=== PATIENT | female | born 2000 | race Caucasian/White ===

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

== ENCOUNTER 2021-02-25 15:03 | Emergency (ER) | payer BC, SELFPAY ==
[2021-02-25 15:03] VITALS: BP 123/99; PULSE 145; RESP 18; TEMP 36.6; O2SAT 94; BMI 21.2
--- NOTE | 2021-02-25 15:46 | EX.ED.DYSGE1 ---
HPI History of Present Illness Chief Complaint: Abd Pain Detail of Chief Complaint: Abdominal pain, back pain, dysuria Informant: patient Onset/Context/Timing Current Severity: 08/17 Narrative Narrative: Patient presents to the emergency department with complaint of 2-day history of urinary frequency and dysuria. Patient states that she started having back pain yesterday as well as nausea and some dry heaves. Patient has history of polycystic kidney disease and has a bladder pacemaker. Patient complains of pain mostly to her left flank. She denies any diarrhea. Patient has had subjective fever at home. Prior similar symptoms: Yes PFSH PFSH Medical History Anemia Anxiety Blackout Bladder disease Depression Easy bruising Excessive bleeding History of COVID-19 Injury of head and neck Marijuana use Nocturia Polycystic kidney disease Smoker Tourettes syndrome Urge incontinence Urinary tract infection Wears glasses Home Medications oxycodone-acetaminophen [Percocet] 1 tab PO Q8H PRN 5 Days #15 tab 11/12/20 [Rx Last Taken Unknown] oxycodone-acetaminophen 1 tab PO Q6H PRN PRN 3 Days #6 tablet 02/25/21 [Rx Last Taken Unknown] sulfamethoxazole-trimethoprim 1 tab PO BID #6 tablet 02/25/21 [Rx Last Taken Unknown] Allergy/AdvReac Type Severity Reaction Status Date / Time vancomycin AdvReac Itching Verified 11/26/20 06:41 Family History Mother CVA (cerebral vascular accident) Surgical History Hemangioma Hx of cystoscopy Social History household members: family Smoking Status: Current every day smoker tobacco type: smokeless tobacco alcohol intake: never substance use type: does not use ROS ROS ED Constitutional Constitutional ED: Reports systems reviewed and no addt'l complaints, except as documented; Denies body ache(s), change in weight or chills Eyes Eyes: Denies acute decrease in peripheral vision, change in vision, double vision or loss of vision ENT ENT ED: Reports none; Denies ear pain, lip swelling, loss taste/smell, neck pain, otalgia or sore throat Cardiovascular Cardiovascular: Reports none; Denies abdominal pain, chest pain with activity, leg edema, lightheadedness, palpitations, rapid heart rate or syncope Respiratory/Chest Respiratory/Chest: Reports none; Denies change in mental status, dry cough, dyspnea, hemoptysis, shortness of breath at rest or shortness of breath with exertion Gastrointestinal Gastrointestinal: Reports none, abdominal pain and nausea; Denies change in stool character, diarrhea, hematemesis, hematochezia, melena, rectal bleeding or vomiting Genitourinary Genitourinary ED: Reports none, dysuria and urinary frequency; Denies abdominal discomfort, anuria, genital pain or polyuria Musculoskeletal Musculoskeletal: Reports none and back pain; Denies arthralgias, difficulty walking, extremity pain, muscle weakness or myalgias Integumentary Reports none; Denies abscess or rash Neurologic Neurologic: Reports none; Denies abnormal gait, confusion, focal weakness, frequent falls, headache(s), loss of vision, numbness, paresthesias, radicular pain, vertigo or weakness Psychiatric Psychiatric: Reports systems reviewed and no addt'l complaints, except as documented and none; Denies behavioral changes, confusion, difficulty concentrating, hallucinations, suicidal ideation, tactile hallucinations or visual hallucinations Endocrine Endocrinology: Denies none, cold intolerance, excessive sweating, fatigue or heat intolerance Hematologic/Lymphatic Hematologic/Lymphatic: Reports none; Denies anemia, easy bleeding or easy bruising Allergic/Immunologic Allergic/Immunologic ED: Denies as per HPI, none, lip swelling, mouth swelling, throat swelling, tongue swelling or hives EXAM Physical Exam Const Vital Signs: 02/25/21 15:03 Temperature 97.8 F Temperature Source Temporal Pulse Rate 145 H Respiratory Rate 18 Blood Pressure 123/99 H Blood Pressure Mean 107 Pulse Ox 94 Oxygen Delivery Method Room Air Positive well nourished and well developed General Appearance ED: well developed and NAD HEENT Reports TM's clear and moist mucous membranes normocephalic and atraumatic; Negative for trauma or tenderness Tympanic Membrane ED: Yes TM's clear Eyes PERRL and EOMs intact bilaterally General Eye ED: Negative for pale conjunctiva or scleral icterus Neck no lymphadenopathy, supple and no JVD General: Negative for tenderness Chest Wall inspection of chest normal and palpation of chest normal Chest: Negative for tenderness Resp normal respiratory effort and clear to auscultation bilaterally Effort and Inspection: Negative for respiratory distress or pain with movement Auscultation: Negative for rhonchi, wheezes or diminished lung sounds Cardio regular rate, regular rhythm, S1 normal heart sound, S2 normal heart sound and no murmurs Peripheral Pulses: pulses 2+ throughout GI normal to inspection, nondistended, normoactive bowel sounds, soft to palpation, non-distended and no masses GI Narrative: Patient with mild suprapubic tenderness on palpation. There is no rebound, rigidity, or perineal signs. Palpation: tender Back/Spine no thoracic nor lumbar tenderness General Back: CVA tenderness left Extremity normal to inspection General Extremety ED: Negative for edema General Extremity: Negative for edema Neuro oriented x3, CN's II-XII intact bilaterally, no sensory deficits noted and gait normal Sensorium / Orientation: awake, alert, oriented to person, oriented to place and oriented to time Motor Exam: strength 5/5 throughout and strength abnormal Psych mental status grossly normal Skin no rashes or lesions noted and no wounds MDM MDM MDM Narrative Medical decision making narrative: IV line established on arrival. Patient was given Toradol as well as Zofran. Patient states the Toradol really did not help her very much. Urine had blood in it but patient is around her menstrual period. Patient had a negative CT scan of the abdomen pelvis to rule out kidney stone. At this point etiology of her pain is unclear. I will cover her with Bactrim for 3 days as patient is adamant that after menstrual period she has often had urinary tract infections that felt similar. I did send off urine culture. Patient also will be given a prescription for Zofran and a few Percocet for pain. Lab Data Attestation: I reviewed the patient's lab results. Labs: Laboratory Results - last 24 hr 02/25/21 02/25/21 02/25/21 16:03 16:03 16:03 WBC 5.2 RBC 4.92 Hgb 12.3 Hct 38.3 MCV 77.8 L MCH 25.0 L MCHC 32.1 RDW Std Deviation 40.6 RDW Coeff of Tiffany 14.6 Plt Count 418 MPV 9.7 Immature Gran % (Auto) 0.200 Neut % (Auto) 51.5 Lymph % (Auto) 35.3 [place] % (Auto) 10.7 H Eos % (Auto) 1.9 Baso % (Auto) 0.4 Absolute Neuts (auto) 2.7 Absolute Lymphs (auto) 1.82 Nucleated RBC % 0 Sodium 139 Potassium 4.0 Chloride 109 H Carbon Dioxide 23.0 Anion Gap 7 BUN 10 Creatinine 0.70 Estim Creat Clear Calc 106.93 Est GFR (MDRD) Af Amer 138 Est GFR (MDRD) Non-Af 114 BUN/Creatinine Ratio 14.3 Glucose 85 Lactic Acid 0.9 Calcium 9.0 Total Bilirubin 0.30 AST 17 ALT 18 Alkaline Phosphatase 47 Total Protein 7.6 Albumin 3.3 Globulin 4.3 H Albumin/Globulin Ratio 0.8 L Serum , Qual Urine Color Urine Clarity Urine pH Ur Specific [place] Urine Protein Urine Glucose (UA) Urine Ketones Urine Occult Blood Urine Nitrite Urine Bilirubin Urine Urobilinogen Ur Leukocyte Esterase Urine RBC Urine WBC Ur Squamous Epith Cells Urine Bacteria Urine Mucus 02/25/21 02/25/21 16:03 16:30 WBC RBC Hgb Hct MCV MCH MCHC RDW Std Deviation RDW Coeff of [place] Plt Count MPV Immature Gran % (Auto) Neut % (Auto) Lymph % (Auto) [place] % (Auto) Eos % (Auto) Baso % (Auto) Absolute Neuts (auto) Absolute Lymphs (auto) Nucleated RBC % Sodium Potassium Chloride Carbon Dioxide Anion Gap BUN Creatinine Estim Creat Clear Calc Est GFR (MDRD) Af Amer Est GFR (MDRD) Non-Af BUN/Creatinine Ratio Glucose Lactic Acid Calcium Total Bilirubin AST ALT Alkaline Phosphatase Total Protein Albumin Globulin Albumin/Globulin Ratio Serum , Qual NEGATIVE Urine Color Yellow Urine Clarity Sl. Cloudy Urine pH 7.0 Ur Specific [place] 1.010 Urine Protein 30 H Urine Glucose (UA) Normal Urine Ketones Negative Urine Occult Blood 250 H Urine Nitrite Negative Urine Bilirubin Negative Urine Urobilinogen Normal Ur Leukocyte Esterase 25 H Urine RBC > 100 SEEN Urine WBC 0-5 SEEN Ur Squamous Epith Cells 0 SEEN Urine Bacteria 2+ Urine Mucus 0 SEEN Radiography Diagnostic Testing: Clinical Impression(s) from Imaging Studies Abdomen/Pelvis CT 02/25/21 17:04 Discharge Plan Triage Chief Complaint: Abd Pain ED Provider: Shasta Will Dx/Rx/DC Orders Clinical Impression: Abdominal pain, Back pain Instructions: ED Abdominal Pain Unkn Cause Fem, ED Flank Pain, Uncertain Cause Prescriptions: New sulfamethoxazole-trimethoprim [sulfamethoxazole-trimethoprim] 1 TABLET tablet 1 tab PO BID Qty: 6 RF: 0 oxycodone-acetaminophen [oxycodone-acetaminophen] 1 TABLET tablet 1 tab PO Q6H PRN PRN (Reason: Pain) 3 Days Qty: 6 RF: 0 No Action oxycodone-acetaminophen [Percocet] 5-325 mg tablet 1 tab PO Q8H PRN (Reason: pain) 5 Days Qty: 15 RF: 0 Primary Care Provider: Xavier Barrett Referrals: Dionne Sen MD [STAFF PHYSICIAN] - 3-5 Days Xavier Barrett MD [Primary Care Provider] - Disposition Disposition: Home, Self Care
[2021-02-25 16:22] LABS: Absolute Lymphocyte Count 1.82 X10^3/uL (0.83-4.51); Absolute Neutrophil Count 2.7 X10^3/uL (2.0-7.7); Basophil# 0.02 X10^3/uL; Basophil% 0.4 % (0-1); Eosinophils% 1.9 % (0-5); Hematocrit 38.3 % (37-47); Hemoglobin 12.3 g/dL (12.0-15.0); Lymphocyte # 1.82 X10^3/ul (0.83-4.51); Lymphocyte % 35.3 % (19-41); Mean Corp Hgb Conc 32.1 g/dL (32-36); Mean Corpuscular Volume 77.8 fL (81-99); Mean Platelet Vol. 9.7 fl (6.2-12.0); Monocyte# 0.55 X10^3/uL; Monocyte% 10.7 % (0-10); NRBC Flagged by Analyzer 0 % (0-5); Neutrophil # 2.66 X10^3/uL (2.7-7.7); Neutrophil % 51.5 % (47-70); Platelet Count 418 K/mm3 (150-450); RBC Distribution Width CV 14.6 % (11.6-14.6); RBC Distribution Width SD 40.6 fl (35.1-43.9); Red Blood Count 4.92 M/mm3 (4.2-5.4); White Blood Count 5.2 K/mm3 (4.4-11.0)
[2021-02-25] MEDS: Ketorolac 15 MG/ML Vial IV (16:28)
[2021-02-25] MEDS: Ondansetron 4 MG/2 ML Vial IV (16:29)
[2021-02-25] MEDS: 0.9% Normal Saline 1,000 ML 125 ML IV (16:29)
[2021-02-25 16:34] LABS: ALB/GLOB Ratio 0.8 RATIO (0.9-2.4); AST(SGOT) 17 U/L (15-37); Alanine Aminotransfer ALT/SGPT 18 U/L (13-56); Albumin, Serum 3.3 g/dL (3.2-5.0); Alkaline Phosphatase 47 U/L (45-117); Anion Gap 7 (5-15); BUN 10 mg/dL (7-18); BUN/Creat Ratio 14.3 RATIO (10-20); Chloride 109 mmol/L (98-107); EST Glomerular Filtration Rate 114 mL/min (>60); Est Glom Filt Rate - Afr Amer 138 mL/min (>60); Estimated Creatinine Clearance 106.93 ml/min; Globulin 4.3 g/dL (2.2-4.2); Glucose 85 mg/dL (74-106); Protein, Total 7.6 g/dL (6.4-8.2); Sodium Level 139 mmol/L (136-145)
[2021-02-25 16:36] LABS: Mucous, Urine 0 SEEN /hpf (<or=2+); Squamous Epithelial Cells - UA 0 SEEN /hpf (5-10)
[2021-02-25 16:39] LABS: Color, Urine Yellow (Yellow); Glucose, Dipstick Normal (Normal); Ketone-Dipstick Negative (Negative); Leukocyte Esterase-Dipstick 25 /ul (Negative); Nitrite-Dipstick Negative (Negative); Occult Blood-Urine 250 /ul (Negative); Protein-Dipstick 30 mg/dl (Negative); Urine Bilirubin Dipstick Negative (Negative); Urine Clarity Sl. Cloudy (Clear); Urine Urobilinogen Normal (Normal)
[2021-02-25 16:43] LABS: Lactic Acid 0.9 mmol/L (0.4-1.9)
[2021-02-25 16:53] LABS: Bacteria 2+ /hpf (None Seen); Red Blood Cells-Urine > 100 SEEN /hpf (0-5); White Blood Cells 0-5 SEEN /hpf (0-5)
[2021-02-25 16:55] LABS: Internal QC Validated? YES +Cl - CLEAR BKGD; Pregnancy, Serum, hCG Quali. NEGATIVE Negative
--- NOTE | 2021-02-25 17:04 | CT_ITS ---
STUDY: CT Abdomen And Pelvis W/O Contrast Injection 02/25/2021 5:33 PM REASON FOR EXAM: Female, 20 years old. ABDOMINAL PAIN left flank pain TECHNIQUE: Transaxial images were obtained without oral contrast, and without intravenous contrast. Individualized dose optimization techniques were used for this CT. COMPARISON: 10.24.20 FINDINGS: The visualized lung bases are unremarkable. The visualized portions of the heart are within normal limits. Normal liver. Normal gallbladder and extrahepatic biliary system. Normal spleen. Normal pancreas. Normal bilateral adrenal glands. There are hypodensities in both kidneys. These are consistent for cysts. No follow up required. Stable calcification of the right kidney. This measures 13 mm. 3 mm nonobstructive calculus in the posterior lower pole calyx of the right kidney. Normal visualized stomach. Normal small intestine. Stool throughout the colon. There is non-visualization of the appendix. There are no acute findings of the abdominal aorta. Normal inferior vena cava. Subcentimeter mesenteric lymph nodes. Normal urinary bladder. There is a lucent circular ring within the vaginal cuff. This is likely a -control ring. There is a right side sided subcutaneous implanted electronic device with leads extending into the spinal canal. This is likely an SCS (spinal cord stimulator). There is an umbilical hernia containing fat. Normal osseous structures. IMPRESSION: (NOT LISTED IN ORDER OF SIGNIFICANCE) Stable bilateral renal cyst Stable calculi of the right kidney. Other findings as above. Electronically Signed: Rafiq Villagomez MD at 17:36 EST , Service support , CT/Abdomen/Pelvis without Cont
[2021-02-25 18:11] VITALS: PULSE 74; O2SAT 98
== END 2021-02-25 18:12 | disposition home or self-care (01) ==
PROVIDERS: Emergency Provider Emergency Medicine; PCP Pediatrics; Visit Provider Emergency Medicine
DX: R10.9 Unspecified abdominal pain (principal); M54.9 Dorsalgia, unspecified; R30.0 Dysuria; R11.0 Nausea; Q61.3 Polycystic kidney, unspecified; Z97.8 Presence of other specified devices; Z86.16 Personal history of COVID-19; F95.2 Tourette's disorder; Z87.440 Personal history of urinary (tract) infections
CPT/HCPCS: 74176; 80053; 81001; 83605; 84703; 85025; 87086; 87088; 96374; 96375; 99283; J7030; A4216; J2405

== ENCOUNTER 2021-03-06 09:36 | Emergency (ER) | payer BC, SELFPAY ==
[2021-03-06 09:38] VITALS: BP 123/81; PULSE 119; RESP 17; TEMP 36.7; O2SAT 99; BMI 20.9
--- NOTE | 2021-03-06 10:24 | EDS_ITS ---
HPI History of Present Illness Chief Complaint: Other, Pain/Inj Informant: patient and spouse/S.O. Narrative Narrative: Patient presents for evaluation generalized arthralgias reported fever since yesterday today 101.4 forehead, no antipyretics were taken. Denies c ough or urinary symptoms. Denies vomiting or diarrhea. Intermittent headaches for 2 weeks. No loss of taste or smell. Covid vaccinated second vaccination 2 months ago. Covid infection back in May of last year. No history of polycystic kidney disease, she was seen 9 days ago in the ED with the work-up. Negative urolithiasis she had dysuria at that time, she was put on a 3-day Bactrim course. Culture evaluate however came back contaminated. She is followed by urologist Dr. Sen. She states she followed up the following day, states was told from a urological standpoint things are stable. She states there was discussion of her generalized pain with joint pain bilaterally, there is concerns for rheumatological disorder, she was referred to rheumatology for which she has appointment in 8 days. She is not nondiabetic. She reports her urine irritation has improved since her menstrual period finished yesterday and tampons were removed. She however reports since yesterday increasing joint pains throughout. She is not vaccinated for influenza this year. She states she had multiple Covid testing in the last 2 weeks with 2 PCR's and 2 [place] that were all negative. Prior similar symptoms: Yes PFSH PFSH Medical History Anemia Anxiety Blackout Bladder disease Depression Easy bruising Excessive bleeding History of COVID-19 Injury of head and neck Marijuana use Nocturia Polycystic kidney disease Smoker Tourettes syndrome Urge incontinence Urinary tract infection Wears glasses Home Medications oxycodone-acetaminophen 1 tab PO Q6H PRN PRN 3 Days #6 tablet 02/25/21 [Rx Last Taken Unknown] prednisone 40 mg PO DAILY #12 tab 03/06/21 [Rx Last Taken Unknown] Allergy/AdvReac Type Severity Reaction Status Date / Time vancomycin AdvReac Itching Verified 03/06/21 09:37 Family History Mother CVA (cerebral vascular accident) Surgical History Hemangioma Hx of cystoscopy Social History household members: family Smoking Status: Current every day smoker tobacco type: cigarettes and smokeless tobacco alcohol intake: never substance use type: does not use ROS ROS ED Constitutional Constitutional ED: Reports fever(s); Denies chills or sweats Eyes Eyes: Denies change in vision ENT ENT ED: Denies dysphagia or sore throat Cardiovascular Cardiovascular: Denies chest pain, leg edema, palpitations or racing heartbeat Respiratory/Chest Respiratory/Chest: Denies cough, dyspnea or dyspnea on exertion Gastrointestinal Gastrointestinal: Denies abdominal pain, diarrhea, nausea or vomiting Genitourinary Genitourinary ED: Denies dysuria, hematuria or urinary frequency Musculoskeletal Musculoskeletal: Reports arthralgias and myalgias; Denies back pain, extremity pain or neck pain Integumentary Denies rash or wounds Neurologic Neurologic: Denies headache(s), paresthesias or weakness EXAM Physical Exam Const Vital Signs: 03/06/21 09:38 03/06/21 09:48 03/06/21 11:32 Temperature 98.0 F 100.0 F H Temperature Source Temporal Oral Pulse Rate 119 H Respiratory Rate 17 Respiratory Effort Normal Non-Labored Respiratory Pattern Normal Blood Pressure 123/81 H Blood Pressure Mean 95 Pulse Ox 99 Oxygen Delivery Method Room Air 03/06/21 11:54 Temperature Temperature Source Pulse Rate 108 H Respiratory Rate 17 Respiratory Effort Respiratory Pattern Blood Pressure Blood Pressure Mean Pulse Ox 99 Oxygen Delivery Method Positive well nourished and well developed General Appearance ED: well developed and NAD HEENT Reports TM's clear and moist mucous membranes HEENT Narrative: No posterior pharyngeal erythema normocephalic and atraumatic Tympanic Membrane ED: Yes TM's clear Eyes PERRL, EOMs intact bilaterally and conjunctivae normal General Eye ED: Yes normal appearance of both eyes Neck no lymphadenopathy and supple General: Negative for tenderness Chest Wall Chest: Negative for tenderness Resp normal respiratory effort and normal air movement Effort and Inspection: symmetric chest movement; Negative for respiratory distress Cardio regular rhythm and no murmurs Rate: tachycardic Peripheral Pulses: pulses 2+ throughout GI normal to inspection, nondistended, normoactive bowel sounds and non-tender Palpation: Negative for guarding or rebound tenderness present Back/Spine no CVA tenderness and no thoracic nor lumbar tenderness Extremity normal to inspection General Extremety ED: Negative for edema or tenderness General Extremity: Negative for edema Neuro oriented x3 and no sensory deficits noted Sensorium / Orientation: awake and alert Skin no rashes or lesions noted and no wounds MDM MDM MDM Narrative Medical decision making narrative: Patient nontoxic, afebrile in the ED. She was tachycardic in triage. Denies any respiratory complaints or palpitations. Discussed extensively with patient significant other in the room, with her arthralgias, work-up can be done as an outpatient. Discussed starting on a steroid burst dose to see if it improves with symptoms prior to her seeing her rheumatology appointment next Wednesday. Discussed using a week only at this time, however there may be a delay in blood draws when she sees a dish network installer due to suppression. They understand this. I discussed sending for Covid PCR due to her recurrent fevers and myalgias. We will also test for influenza. Patient denied any cough symptoms stating urine symptoms have resolved since removing tampons from her menstrual periods finishing yesterday. Influenza returned negative. PCR test pending. After my evaluation patient told nursing that she does have dysuria starting today which she stated resolved with me since tampons removed yesterday. She had a contaminated sample previously. She is nontoxic. Discussed obtaining straight cath for a clean specimen however patient declines. Discussed with patient we will send for urine culture, hold off on treatment unless positive. She was given her steroids. Recheck temperature elevated at 100. She denies cough symptoms. Discussed possibly waxing waning viral syndrome with Covid being tested with a PCR. She is nontoxic at this time. She reported on reevaluation epigastric abdominal pain starting in the ED. She had nausea earlier. On abdominal exam minimal tenderness epigastric mid abdomen. There is no guarding or rebound. Negative Moser's McBurney's tenderness. She will be given a GI cocktail in the ED. In addition I reminded them with steroid burst and treatment for 7 days, there could be delay on rheumatology's plan blood draws, however with her arthralgia complaints, discussed will try to give symptomatic relief. Patient understands. Patient also still has her last prescription of Percocet that she has not filled on rediscussion. She finished her previous prescription from November from her urologist. Patient is being discharged under pandemic conditions under declared global, national and state disaster activation, with limited medical resources. Patient and community understands this. Results discussed in layman's terms to the patient satisfaction. All questions answered in layman's terms. Patient understands importance of follow-up care as directed. Patient has been instructed to return to the ED immediately if new symptoms, problems, or questions occur. We mutually agree with the plan of disposition. The patient understand that they may call or return with any questions or concerns at any time. Lab Data Labs: Laboratory Results - last 24 hr 03/06/21 10:39 COVID-19 ([facility]) Not Detected Discharge Plan Triage Chief Complaint: Other, Pain/Inj ED Provider: Eliseo Woodson Dx/Rx/DC Orders Clinical Impression: Arthralgia Instructions: ED Arthralgia Prescriptions: New prednisone 20 mg tablet 40 mg PO DAILY Qty: 12 RF: 0 No Action oxycodone-acetaminophen [oxycodone-acetaminophen] 1 TABLET tablet 1 tab PO Q6H PRN PRN (Reason: Pain) 3 Days Qty: 6 RF: 0 Primary Care Provider: Xavier Barrett Referrals: Xavier Barrett MD [Primary Care Provider] - 1 Week Activity Restrictions/Additional Instructions: Keep your rheumatology referral appointment next Wednesday. Take steroid as prescribed. Covid PCR sent out for further rule out. Disposition Disposition: Home, Self Care Discharge Date/Time: 03/06/21 11:55
[2021-03-06] MEDS: predniSONE 20 MG Tablet 40 MG PO (10:27)
[2021-03-06 11:32] VITALS: TEMP 37.8
[2021-03-06] MEDS: Mag Hydrox/Al Hydrox/Simeth 30 ML UDC PO (11:43)
[2021-03-06 11:54] VITALS: PULSE 108; RESP 17; O2SAT 99
== END 2021-03-06 11:55 | disposition home or self-care (01) ==
LOC: ED 10:25
PROVIDERS: Emergency Provider Emergency Medicine; PCP Pediatrics; Visit Provider Emergency Medicine
DX: M25.59 Pain in other specified joint (principal); R30.0 Dysuria; R10.816 Epigastric abdominal tenderness; F17.210 Nicotine dependence, cigarettes, uncomplicated; F17.290 Nicotine dependence, other tobacco product, uncomplicated; Z86.16 Personal history of COVID-19
CPT/HCPCS: 87086; 87088; 87635; 87804; 99283; U0003; U0005

== ENCOUNTER 2021-03-12 10:07 | Outpatient (CLI) | payer BC, SELFPAY ==
--- NOTE | 2021-03-12 10:11 | RAD_ITS ---
STUDY: X-RAY - LUMBAR SPINE REASON FOR EXAM: Female, 20 years old. PAIN TECHNIQUE: 2 view(s) of the lumbar spine were obtained. COMPARISON: Comparison is made with prior study dated 08/20/2020. FINDINGS: Normal lumbar lordosis. There is no substantial scoliosis. There is a normal alignment of the vertebrae. Normal vertebral bodies and endplates. Normal disc space heights. A right sided InterStim device is seen. RAD/Lumbar Spine 2 or 3 Views IMPRESSION: Normal x-ray examination of the lumbar spine. Electronically Signed: Marvin Rankin MD at 15:33 EST ,
--- NOTE | 2021-03-12 10:11 | RAD_ITS ---
STUDY: X-RAY - PELVIS REASON FOR EXAM: Female, 20 years old. PAIN TECHNIQUE: One view of the pelvis was obtained. COMPARISON: None. FINDINGS: There is a non-specific bowel gas pattern. A right sided InterStim device is seen. Normal bilateral iliac wings, sacroiliac joints and visualized sacrum. Normal visualized bilateral superior and inferior pubic rami. Normal pubic symphysis. Normal ischial tuberosities. Normal visualized right femoral head. Normal right acetabulum. Normal right hip joint. Normal visualized left femoral head. Normal left acetabulum. Normal left hip joint. RAD/Pelvis 1 or 2 Views IMPRESSION: Normal x-ray examination of the pelvis. Electronically Signed: Marvin Rankin MD at 15:32 EST ,
[2021-03-12 12:10] LABS: Color, Urine Yellow (Yellow); Glucose, Dipstick Normal (Normal); Ketone-Dipstick Negative (Negative); Leukocyte Esterase-Dipstick 25 /ul (Negative); Nitrite-Dipstick Negative (Negative); Occult Blood-Urine Negative /ul (Negative); Protein-Dipstick Negative (Negative); Urine Bilirubin Dipstick Negative (Negative); Urine Clarity Sl. Cloudy (Clear); Urine Urobilinogen Normal (Normal); Urine pH 6.5 (5.0 - 8.0)
[2021-03-12 12:15] LABS: Absolute Lymphocyte Count 4.76 X10^3/uL (0.83-4.51); Absolute Neutrophil Count 2.6 X10^3/uL (2.0-7.7); Basophil# 0.05 X10^3/uL; Basophil% 0.6 % (0-1); Eosinophils% 2.3 % (0-5); Hematocrit 39.6 % (37-47); Hemoglobin 12.1 g/dL (12.0-15.0); Lymphocyte # 4.76 X10^3/ul (0.83-4.51); Lymphocyte % 55.9 % (19-41); Mean Corp Hgb Conc 30.6 g/dL (32-36); Mean Corpuscular Hgb 24.4 pg (27.0-32.0); Monocyte# 0.84 X10^3/uL; Monocyte% 9.9 % (0-10); NRBC Flagged by Analyzer 0 % (0-5); Neutrophil # 2.59 X10^3/uL (2.7-7.7); Neutrophil % 30.4 % (47-70); Platelet Count 493 K/mm3 (150-450); RBC Distribution Width CV 14.8 % (11.6-14.6); RBC Distribution Width SD 42.7 fl (35.1-43.9); Red Blood Count 4.95 M/mm3 (4.2-5.4); White Blood Count 8.5 K/mm3 (4.4-11.0)
[2021-03-12 12:32] LABS: Erythrocyte Sedimentation Rate 15 mm/hr (0-30)
[2021-03-12 12:44] LABS: Protein, Urine (Random) 10.8 mg/dL (<11.9); Protein:Creat Ratio 128 mg/g CRE (0-200)
[2021-03-12 13:10] LABS: ALB/GLOB Ratio 0.8 RATIO (0.9-2.4); AST(SGOT) 11 U/L (15-37); Alanine Aminotransfer ALT/SGPT 20 U/L (13-56); Albumin, Serum 3.3 g/dL (3.2-5.0); Alkaline Phosphatase 55 U/L (45-117); Anion Gap 6 (5-15); BUN 12 mg/dL (7-18); BUN/Creat Ratio 20.8 RATIO (10-20); CRP < 2.90 mg/L (0.0-3.0); Calcium,Total 8.8 mg/dL (8.5-10.1); Chloride 106 mmol/L (98-107); Creatinine, Serum 0.58 mg/dL (0.55-1.02); EST Glomerular Filtration Rate 142 mL/min (>60); Est Glom Filt Rate - Afr Amer 172 mL/min (>60); Globulin 4.2 g/dL (2.2-4.2); Glucose 76 mg/dL (74-106); Hepatitis B Surface Antibody Non-Reactive; Hepatitis B Surface Antigen Non-Reactive (Nonreactive); Hepatitis C Antibody Non-Reactive (Nonreactive); Potassium 3.7 mmol/L (3.5-5.1); Protein, Total 7.5 g/dL (6.4-8.2); Rheumatoid Factor < 10.0 IU/mL (<15); Sodium Level 139 mmol/L (136-145)
[2021-03-13 15:51] LABS: ANTINUCLEAR ANTIBODIES DIRECT Negative (Negative)
[2021-03-27 20:35] LABS: CCP IgG Antibodies 22 units (0-19); HLA B27 Negative (.)
== END 2021-03-12 23:59 | disposition home or self-care (01) ==
PROVIDERS: PCP Pediatrics; Referring Provider Internal Medicine Rheumatology; Visit Provider Internal Medicine Rheumatology
DX: M06.4 Inflammatory polyarthropathy (principal); M79.7 Fibromyalgia; Q61.3 Polycystic kidney, unspecified; N39.41 Urge incontinence; G43.109 Migraine with aura, not intractable, without status migrainosus; F32.A Depression, unspecified; F95.2 Tourette's disorder
CPT/HCPCS: 36415; 72100; 72170; 80053; 81002; 81374; 82570; 84156; 85025; 85652; 86038; 86140; 86200; 86431; 86706; 86803; 87340

== ENCOUNTER 2021-04-23 11:22 | Outpatient (CLI) | payer BC, SELFPAY ==
[2021-04-23 15:17] LABS: Absolute Lymphocyte Count 1.78 X10^3/uL (0.83-4.51); Absolute Neutrophil Count 4.5 X10^3/uL (2.0-7.7); Basophil# 0.02 X10^3/uL; Basophil% 0.3 % (0-1); Eosinophil# 0.08 X10^3/uL; Eosinophils% 1.1 % (0-5); Hematocrit 37.2 % (37-47); Hemoglobin 12.1 g/dL (12.0-15.0); Lymphocyte # 1.78 X10^3/ul (0.83-4.51); Lymphocyte % 25.1 % (19-41); Mean Corp Hgb Conc 32.5 g/dL (32-36); Mean Corpuscular Hgb 25.5 pg (27.0-32.0); Mean Corpuscular Volume 78.3 fL (81-99); Mean Platelet Vol. 10.2 fl (6.2-12.0); Monocyte# 0.74 X10^3/uL; Monocyte% 10.4 % (0-10); NRBC Flagged by Analyzer 0 % (0-5); Neutrophil # 4.46 X10^3/uL (2.7-7.7); Neutrophil % 62.8 % (47-70); Platelet Count 495 K/mm3 (150-450); RBC Distribution Width CV 14.9 % (11.6-14.6); RBC Distribution Width SD 42.2 fl (35.1-43.9); Red Blood Count 4.75 M/mm3 (4.2-5.4); White Blood Count 7.1 K/mm3 (4.4-11.0)
[2021-04-23 15:21] LABS: Internal QC Validated? YES +Cl - CLEAR BKGD; Pregnancy, Urine Negative Negative
[2021-04-23 15:41] LABS: ALB/GLOB Ratio 0.8 RATIO (0.9-2.4); AST(SGOT) 19 U/L (15-37); Alanine Aminotransfer ALT/SGPT 23 U/L (13-56); Albumin, Serum 3.4 g/dL (3.2-5.0); Alkaline Phosphatase 56 U/L (45-117); Anion Gap 6 (5-15); BUN 14 mg/dL (7-18); BUN/Creat Ratio 20.3 RATIO (10-20); Chloride 108 mmol/L (98-107); Creatinine, Serum 0.69 mg/dL (0.55-1.02); EST Glomerular Filtration Rate 116 mL/min (>60); Est Glom Filt Rate - Afr Amer 140 mL/min (>60); Globulin 4.2 g/dL (2.2-4.2); Glucose 80 mg/dL (74-106); Potassium 3.8 mmol/L (3.5-5.1); Protein, Total 7.6 g/dL (6.4-8.2); Sodium Level 138 mmol/L (136-145)
== END 2021-04-23 23:59 | disposition home or self-care (01) ==
LOC: MTLAB 11:24
PROVIDERS: PCP Pediatrics; Referring Provider Internal Medicine Rheumatology; Visit Provider Internal Medicine Rheumatology
DX: M06.09 Rheumatoid arthritis without rheumatoid factor, multiple sites (principal); M79.7 Fibromyalgia; Q61.3 Polycystic kidney, unspecified; N39.41 Urge incontinence; G43.109 Migraine with aura, not intractable, without status migrainosus; F32.A Depression, unspecified; F95.2 Tourette's disorder
CPT/HCPCS: 36415; 80053; 81025; 82955; 85025

== ENCOUNTER → 2021-06-27 | Outpatient (CLI) | payer BC, SELFPAY ==
[2021-06-27 18:11] LABS: Absolute Lymphocyte Count 1.85 X10^3/uL (0.83-4.51); Absolute Neutrophil Count 5.8 X10^3/uL (2.0-7.7); Basophil# 0.04 X10^3/uL; Basophil% 0.5 % (0-1); Hemoglobin 11.2 g/dL (12.0-15.0); Lymphocyte # 1.85 X10^3/ul (0.83-4.51); Lymphocyte % 21.5 % (19-41); Mean Corp Hgb Conc 31.1 g/dL (32-36); Mean Corpuscular Hgb 24.7 pg (27.0-32.0); Mean Corpuscular Volume 79.3 fL (81-99); Mean Platelet Vol. 9.8 fl (6.2-12.0); Monocyte# 0.84 X10^3/uL; Monocyte% 9.8 % (0-10); NRBC Flagged by Analyzer 0 % (0-5); Neutrophil # 5.82 X10^3/uL (2.7-7.7); Neutrophil % 67.7 % (47-70); Platelet Count 505 K/mm3 (150-450); RBC Distribution Width CV 13.7 % (11.6-14.6); RBC Distribution Width SD 39.7 fl (35.1-43.9); Red Blood Count 4.54 M/mm3 (4.2-5.4); White Blood Count 8.6 K/mm3 (4.4-11.0)
[2021-06-27 18:27] LABS: ALB/GLOB Ratio 0.8 RATIO (0.9-2.4); AST(SGOT) 19 U/L (15-37); Alanine Aminotransfer ALT/SGPT 23 U/L (13-56); Albumin, Serum 3.3 g/dL (3.2-5.0); Alkaline Phosphatase 41 U/L (45-117); Anion Gap 7 (5-15); BUN 8 mg/dL (7-18); BUN/Creat Ratio 10.9 RATIO (10-20); Calcium,Total 9.2 mg/dL (8.5-10.1); Chloride 109 mmol/L (98-107); Creatinine, Serum 0.74 mg/dL (0.55-1.02); EST Glomerular Filtration Rate 107 mL/min (>60); Est Glom Filt Rate - Afr Amer 130 mL/min (>60); Globulin 4.1 g/dL (2.2-4.2); Glucose 95 mg/dL (74-106); Potassium 4.2 mmol/L (3.5-5.1); Protein, Total 7.4 g/dL (6.4-8.2); Sodium Level 138 mmol/L (136-145)
== END | disposition home or self-care (01) ==
LOC: MTLAB 16:24
PROVIDERS: PCP Pediatrics; Referring Provider Internal Medicine Rheumatology; Visit Provider Internal Medicine Rheumatology
DX: M06.09 Rheumatoid arthritis without rheumatoid factor, multiple sites (principal); M79.7 Fibromyalgia; Q61.3 Polycystic kidney, unspecified; N39.41 Urge incontinence; G43.109 Migraine with aura, not intractable, without status migrainosus; F32.A Depression, unspecified; F95.2 Tourette's disorder; Z79.899 Other long term (current) drug therapy
CPT/HCPCS: 36415; 80053; 85025

== ENCOUNTER 2021-09-16 07:29 | Emergency (ER) | payer BC, SELFPAY ==
[2021-09-16 07:32] VITALS: BP 135/89; PULSE 100; RESP 20; TEMP 36.3; O2SAT 98; BMI 24.0
--- NOTE | 2021-09-16 07:57 | EX.ED.DYSGE1 ---
HPI History of Present Illness Chief Complaint: General Illness Detail of Chief Complaint: joint pains Informant: patient Onset/Context/Timing Onset: Today Context: - (awoke w/ sx) Timing: Continuous Quality: achy, burning Location: all joints; worse in BLE and back Current Severity: Severe Maximum Severity: Severe Worsened by: walking, moving Relieved by: remaining still Narrative Narrative: Patient presents saying that she is having a flareup of her rheumatoid arthritis/fibromyalgia, sometimes they last for days, it started this morning this time without an obvious trigger, she woke up with the symptoms. She states she is here because this feels like a worse flareup than usual. She has been on steroids for a long time, she stopped them 2 months ago, she felt like she was dependent on them and getting side effects like weight gain. She had significant flareup after she stopped them but things seem to level out after that. She follows with rheumatology Dr. Linder. She denies any fevers chills cough vomiting diarrhea or any other systemic symptoms, but she also states I think I have POTS too, after everything I have read about it. She describes standing up and becoming very tachycardic up to the 180s, gets tingling in her face and her back, sometimes feels lightheaded, has never had a syncopal episode with it. She denies any palpitations, chest discomfort, dyspnea. She has been drinking fluids lately. Also states she has been diagnosed with Tourette's syndrome and anxiety. [facility] Medical History Anemia Anxiety Blackout Bladder disease Depression Easy bruising Excessive bleeding History of COVID-19 Injury of head and neck Marijuana use Nocturia Polycystic kidney disease Smoker Tourettes syndrome Urge incontinence Urinary tract infection Wears glasses Allergy/AdvReac Type Severity Reaction Status Date / Time vancomycin AdvReac Itching Verified 09/16/21 07:32 Family History Mother CVA (cerebral vascular accident) Surgical History Hemangioma Hx of cystoscopy Social History household members: family Smoking Status: Current every day smoker tobacco type: cigarettes and smokeless tobacco alcohol intake: never substance use type: does not use ROS ROS ED Constitutional Constitutional ED: Denies chills or fever(s) Eyes Eyes: Denies change in vision or diplopia ENT ENT ED: Denies rhinorrhea or sore throat Cardiovascular Cardiovascular: Denies chest pain or palpitations Respiratory/Chest Respiratory/Chest: Denies cough or dyspnea Gastrointestinal Gastrointestinal: Denies abdominal pain, diarrhea, nausea or vomiting Genitourinary Genitourinary ED: Denies dysuria or hematuria Musculoskeletal Musculoskeletal: Reports arthralgias and back pain; Denies myalgias or neck pain Integumentary Denies abscess or rash Neurologic Neurologic: Reports paresthesias and other Details: When paresthesias occur, they are painful and everywhere all at the same time including her head ; Denies headache(s) or weakness Psychiatric Psychiatric: Denies anxiety or suicidal thoughts EXAM Physical Exam Const Vital Signs: 09/16/21 07:32 09/16/21 07:46 Temperature 97.3 F L Temperature Source Temporal Pulse Rate 100 Respiratory Rate 20 H Respiratory Effort Normal Respiratory Pattern Normal Blood Pressure 135/89 H Blood Pressure Mean 104 Pulse Ox 98 Oxygen Delivery Method Room Air Positive well nourished and well developed General Appearance ED: well developed and NAD HEENT Reports moist mucous membranes normocephalic and atraumatic Eyes PERRL and EOMs intact bilaterally Neck full ROM and supple Resp normal respiratory effort and clear to auscultation bilaterally Cardio regular rate, regular rhythm and no murmurs Cardio Narrative: No tachycardia including when patient sits up actively GI non-tender and non-distended Auscultation: normoactive bowel sounds Palpation: soft Back/Spine no CVA tenderness General Back: other FROM Extremity normal to inspection Extremity Narrative: Moving all joints without any apparent difficulty. She is a little tremulous. There are no erythematous swollen joints. General Extremety ED: Negative for edema, pulses abnormal or tenderness General Extremity: Negative for edema or pulses abnormal Neuro oriented x3, CN's II-XII intact bilaterally, no sensory deficits noted and deep tendon reflexes 2+ bilaterally Sensorium / Orientation: awake and alert Meningeal Signs: no meningeal signs Motor Exam: strength 5/5 throughout Psych mental status grossly normal Mood & Affect: anxious Skin no rashes or lesions noted and no wounds MDM MDM MDM Narrative Medical decision making narrative: Patient confirms that she is having no new symptoms today. She has had all of this before. I do not think she needs work-up of any type here. I offered her steroids and she does not want those because of the way they make her feel even though typically they do help when she has a flareup like this. She states she is in between several pain management doctors, she has been referred to a new one at [facility] but has not seen them yet because of the virtual visit she had last week was canceled. I will give her a single dose of analgesics here in the ER, I am not going to prescribe her any narcotics for her chronic condition that she is undergoing pain management evaluation for, and she wants to know if she has POTS or not. I refer her to her PCP for this. At this time her vital signs are normal. Discharge Plan Triage Chief Complaint: General Illness ED Provider: Kang Lester Dx/Rx/DC Orders Clinical Impression: Arthralgia, Dysesthesia of multiple sites Instructions: ED Arthralgia Primary Care Provider: Xavier Barrett Referrals: Kirti Linder MD [Med Staff - Security Field Supervisor] - 1-2 Days if not improving Xavier Barrett MD [Primary Care Provider] - Disposition Disposition: Home, Self Care
[2021-09-16] MEDS: Morphine 4 MG/ML Syringe IM (08:16)
== END 2021-09-16 08:55 | disposition home or self-care (01) ==
LOC: ED 08:13
PROVIDERS: Emergency Provider Emergency Medicine; PCP Pediatrics; Visit Provider Emergency Medicine
DX: M25.59 Pain in other specified joint (principal); R20.8 Other disturbances of skin sensation; F17.210 Nicotine dependence, cigarettes, uncomplicated; Z86.16 Personal history of COVID-19
CPT/HCPCS: 96372; 99282

== ENCOUNTER → 2021-09-23 | Outpatient (CLI) | payer BC, SELFPAY ==
--- NOTE | 2021-09-23 12:59 | RAD_ITS ---
INDICATION: PAIN EXAMINATION/TECHNIQUE: X-RAY - XR Chest 2 Views COMPARISON: None. FINDINGS: LINES/DEVICES: None. LUNGS: No consolidation, edema or effusion. No pneumothorax. MEDIASTINUM AND CARDIOVASCULAR STRUCTURES: Cardiac silhouette not enlarged. Central airways and mediastinal contour are unremarkable. BONES AND SOFT TISSUES: Unremarkable. RAD/Chest PA and Lateral IMPRESSION: No radiographic evidence of acute cardiopulmonary disease. Electronically Signed: Compa Arauz MD at 16:07 EDT ,
[2021-09-23 15:05] LABS: Absolute Lymphocyte Count 1.84 X10^3/uL (0.83-4.51); Absolute Neutrophil Count 5.1 X10^3/uL (2.0-7.7); Basophil# 0.04 X10^3/uL; Basophil% 0.5 % (0-1); Eosinophil# 0.14 X10^3/uL; Eosinophils% 1.8 % (0-5); Hemoglobin 12.9 g/dL (12.0-15.0); Lymphocyte # 1.84 X10^3/ul (0.83-4.51); Lymphocyte % 23.1 % (19-41); Mean Corp Hgb Conc 32.3 g/dL (32-36); Mean Corpuscular Hgb 25.4 pg (27.0-32.0); Mean Corpuscular Volume 78.7 fL (81-99); Mean Platelet Vol. 10.3 fl (6.2-12.0); Monocyte# 0.83 X10^3/uL; Monocyte% 10.4 % (0-10); NRBC Flagged by Analyzer 0 % (0-5); Neutrophil # 5.08 X10^3/uL (2.7-7.7); Neutrophil % 63.9 % (47-70); Platelet Count 447 K/mm3 (150-450); RBC Distribution Width CV 14.8 % (11.6-14.6); RBC Distribution Width SD 42.6 fl (35.1-43.9); Red Blood Count 5.08 M/mm3 (4.2-5.4)
[2021-09-23 15:29] LABS: ALB/GLOB Ratio 0.8 RATIO (0.9-2.4); AST(SGOT) 21 U/L (15-37); Alanine Aminotransfer ALT/SGPT 25 U/L (13-56); Albumin, Serum 3.2 g/dL (3.2-5.0); Alkaline Phosphatase 45 U/L (45-117); Anion Gap 8 (5-15); BUN 13 mg/dL (7-18); BUN/Creat Ratio 14.9 RATIO (10-20); Calcium,Total 8.6 mg/dL (8.5-10.1); Chloride 107 mmol/L (98-107); Creatinine, Serum 0.87 mg/dL (0.55-1.02); EST Glomerular Filtration Rate 88 mL/min (>60); Est Glom Filt Rate - Afr Amer 106 mL/min (>60); Globulin 4.1 g/dL (2.2-4.2); Glucose 83 mg/dL (74-106); Potassium 3.7 mmol/L (3.5-5.1); Protein, Total 7.3 g/dL (6.4-8.2); Sodium Level 137 mmol/L (136-145)
[2021-09-26 11:09] LABS: QNTFERON TB Mitogen Value > 10.00 IU/mL (.); QNTFERON TB1+ Ag Value 0.11 IU/mL (.); QNTFERON TB2+ Ag Value 0.12 IU/mL (.)
[2021-09-26 13:13] LABS: QNTIFERON TB Positive Criteria Negative (Negative)
== END | disposition home or self-care (01) ==
LOC: MTLAB 12:58
PROVIDERS: PCP Pediatrics; Referring Provider Internal Medicine Rheumatology; Visit Provider Internal Medicine Rheumatology
DX: M06.09 Rheumatoid arthritis without rheumatoid factor, multiple sites (principal); M79.7 Fibromyalgia; Q61.3 Polycystic kidney, unspecified; N39.41 Urge incontinence; G43.109 Migraine with aura, not intractable, without status migrainosus; F32.A Depression, unspecified; F95.2 Tourette's disorder; Z79.899 Other long term (current) drug therapy
CPT/HCPCS: 36415; 71046; 80053; 85025; 86480

== ENCOUNTER → 2021-10-06 | Outpatient (CLI) | payer BC, SELFPAY ==
[2021-10-06 09:36] LABS: EXAGEN MAILED SPECIMEN
[2021-10-06 10:12] LABS: Protein, Urine (Random) 42.4 mg/dL (<11.9); Protein:Creat Ratio 196 mg/g CRE (0-200)
[2021-10-06 10:26] LABS: Prothrombin Time (Protime)PT. 12.6 SECONDS (11.7-14.9)
[2021-10-06 10:27] LABS: Partial Thromboplast Time 27.2 Seconds (24.1-36.2)
[2021-10-09 16:09] LABS: Dilute Prothrombin Time (dPT) 31.2 sec (0.0-47.6); Dilute Russell Viper Venom 34.6 sec (0.0-47.0); Hexagonal Phase Phospholipid 5 sec (0-11); PTT-LA 31.2 sec (0.0-51.9); Thrombin Time 19.8 sec (0.0-23.0); dPT Confirm Ratio 1.17 Ratio (0.00-1.34)
[2021-10-09 17:22] LABS: Interpretation Comment: (.)
[2021-10-09 17:29] LABS: Thrombin Time 18.4 sec (0.0-23.0)
== END | disposition home or self-care (01) ==
PROVIDERS: PCP Pediatrics; Referring Provider Internal Medicine Rheumatology; Visit Provider Internal Medicine Rheumatology
DX: M06.09 Rheumatoid arthritis without rheumatoid factor, multiple sites (principal); M79.7 Fibromyalgia; Q61.3 Polycystic kidney, unspecified; N39.41 Urge incontinence; G43.109 Migraine with aura, not intractable, without status migrainosus; F32.A Depression, unspecified; F95.2 Tourette's disorder; Z79.899 Other long term (current) drug therapy
CPT/HCPCS: 36415; 82570; 84156; 85598; 85610; 85670; 85730

== ENCOUNTER → 2021-10-20 | Outpatient (CLI) | payer BC, SELFPAY ==
[2021-10-20 12:20] LABS: Absolute Lymphocyte Count 2.68 X10^3/uL (0.83-4.51); Absolute Neutrophil Count 1.9 X10^3/uL (2.0-7.7); Basophil# 0.02 X10^3/uL; Basophil% 0.4 % (0-1); Eosinophil# 0.08 X10^3/uL; Eosinophils% 1.5 % (0-5); Hematocrit 36.7 % (37-47); Hemoglobin 11.5 g/dL (12.0-15.0); Lymphocyte # 2.68 X10^3/ul (0.83-4.51); Lymphocyte % 49.7 % (19-41); Mean Corp Hgb Conc 31.3 g/dL (32-36); Mean Corpuscular Hgb 25.2 pg (27.0-32.0); Mean Corpuscular Volume 80.5 fL (81-99); Mean Platelet Vol. 10.2 fl (6.2-12.0); Monocyte# 0.72 X10^3/uL; Monocyte% 13.4 % (0-10); NRBC Flagged by Analyzer 0 % (0-5); Neutrophil # 1.88 X10^3/uL (2.7-7.7); Neutrophil % 34.8 % (47-70); Platelet Count 411 K/mm3 (150-450); RBC Distribution Width CV 14.8 % (11.6-14.6); RBC Distribution Width SD 43.5 fl (35.1-43.9); Red Blood Count 4.56 M/mm3 (4.2-5.4); White Blood Count 5.4 K/mm3 (4.4-11.0)
[2021-10-20 12:43] LABS: ALB/GLOB Ratio 0.9 RATIO (0.9-2.4); AST(SGOT) 21 U/L (15-37); Alanine Aminotransfer ALT/SGPT 28 U/L (13-56); Albumin, Serum 3.4 g/dL (3.2-5.0); Alkaline Phosphatase 43 U/L (45-117); Anion Gap 9 (5-15); BUN 13 mg/dL (7-18); BUN/Creat Ratio 16.3 RATIO (10-20); Calcium,Total 9.2 mg/dL (8.5-10.1); Chloride 109 mmol/L (98-107); EST Glomerular Filtration Rate 97 mL/min (>60); Est Glom Filt Rate - Afr Amer 118 mL/min (>60); Globulin 3.8 g/dL (2.2-4.2); Glucose 83 mg/dL (74-106); Potassium 3.8 mmol/L (3.5-5.1); Protein, Total 7.2 g/dL (6.4-8.2); Sodium Level 139 mmol/L (136-145)
== END | disposition home or self-care (01) ==
LOC: MTLAB 09:31
PROVIDERS: PCP Pediatrics; Referring Provider Internal Medicine Rheumatology; Visit Provider Internal Medicine Rheumatology
DX: M06.09 Rheumatoid arthritis without rheumatoid factor, multiple sites (principal); R76.8 Other specified abnormal immunological findings in serum; M79.7 Fibromyalgia; Q61.3 Polycystic kidney, unspecified; N39.41 Urge incontinence; G43.109 Migraine with aura, not intractable, without status migrainosus; F32.A Depression, unspecified; F95.2 Tourette's disorder; Z79.899 Other long term (current) drug therapy
CPT/HCPCS: 36415; 80053; 85025

== ENCOUNTER 2021-10-29 10:26 | Emergency (ER) | payer BC, SELFPAY ==
[2021-10-29 10:27] VITALS: BP 135/82; PULSE 99; RESP 18; TEMP 37.1; O2SAT 99; BMI 22.4
--- NOTE | 2021-10-29 10:54 | EDS_ITS ---
HPI History of Present Illness Chief Complaint: General Illness Informant: patient and parent Onset/Context/Timing Onset: Weeks (5-6) Context: Gradual Onset Timing: Continuous Quality: Arthralgias Location: Wrists, fingers, hips, knees, ankles bilaterally Current Severity: Severe Maximum Severity: Severe Worsened by: Moving Relieved by: Nothing Associated Symptoms Associated Symptoms: None Narrative Narrative: Patient has been diagnosed with rheumatoid arthritis, she gets periodic flareups, this 1 has lasted 5 or 6 weeks, pain is intense and it is mostly in her legs but also her hands, it is only in the joints. She denies any redness or swelling. She is now having trouble eating and sleeping because the pain is so significant all of the time. She saw her theoretical physics teacher 2 days ago, she states that it was very brief visit and she received an injection of Enbrel which is her second injection. She does not feel any better. She does not have any new symptoms, all of this is chronic. She was seen here by myself 1-2 months ago for the same thing, and she presented identically. She denies any tick bites that she knows of. She states she recently was referred to infectious disease at [facility], she states she had a lot of labs/blood tests obtained, but the results were not back yet and she is not exactly sure what was ordered. [facility] Medical History Anemia Anxiety Blackout Bladder disease Depression Easy bruising Excessive bleeding History of COVID-19 Injury of head and neck Marijuana use Nocturia Polycystic kidney disease Rheumatoid arthritis Smoker Tourettes syndrome Urge incontinence Urinary tract infection Wears glasses Home Medications duloxetine 60 mg capsule,delayed release 60 mg PO DAILY 10/29/21 [History Last Taken Unknown] etanercept 50 mg/mL (1 mL) subcutaneous pen injector (Enbrel SureClick) 50 mg subcut QWEEK 10/29/21 [History Last Taken Unknown] hydrocodone-acetaminophen 5-325mg 5mg-325mg 1 tab PO Q4H PRN PRN Pain 2 days #10 TABLETS 10/29/21 [Rx Last Taken Unknown] hydroxychloroquine 1.5 tablet DAILY 10/29/21 [History Last Taken Unknown] tumeric 100 mg-glenroy 150 mg-olive 50 mg-oreg 150 mg-caprylate capsule 1 cap PO DAILY 10/29/21 [History Last Taken Unknown] Allergy/AdvReac Type Severity Reaction Status Date / Time vancomycin AdvReac Itching Verified 10/29/21 10:37 Family History Mother CVA (cerebral vascular accident) Surgical History Hemangioma Hx of cystoscopy Social History household members: family Smoking Status: Current every day smoker tobacco type: cigarettes and smokeless tobacco alcohol intake: never substance use type: does not use ROS ROS ED Constitutional Constitutional ED: Reports anorexia; Denies chills or fever(s) Eyes Eyes: Denies change in vision or diplopia ENT ENT ED: Denies rhinorrhea or sore throat Cardiovascular Cardiovascular: Denies chest pain or palpitations Respiratory/Chest Respiratory/Chest: Denies cough or dyspnea Gastrointestinal Gastrointestinal: Denies abdominal pain, diarrhea, nausea or vomiting Genitourinary Genitourinary ED: Denies dysuria or hematuria Musculoskeletal Musculoskeletal: Denies back pain or neck pain Integumentary Denies abscess or rash Neurologic Neurologic: Denies headache(s), paresthesias or weakness Psychiatric Psychiatric: Denies anxiety or suicidal thoughts EXAM Physical Exam Const Vital Signs: 10/29/21 10:27 10/29/21 10:34 Temperature 98.8 F Temperature Source Temporal Pulse Rate 99 Respiratory Rate 18 Respiratory Effort Normal Non-Labored Respiratory Pattern Normal Blood Pressure 135/82 H Blood Pressure Mean 99 Pulse Ox 99 Oxygen Delivery Method Room Air Positive well nourished and well developed General Appearance ED: well developed and NAD HEENT Reports moist mucous membranes normocephalic and atraumatic Eyes PERRL and EOMs intact bilaterally Neck full ROM and supple Resp normal respiratory effort Back/Spine General Back: other FROM Extremity normal to inspection Extremity Narrative: As patient describes her severe right ankle pain, she is moving it around fully and very well without any redness or swelling. Neuro oriented x3, CN's II-XII intact bilaterally and no sensory deficits noted Sensorium / Orientation: awake and alert Motor Exam: strength 5/5 throughout Psych Mood & Affect: anxious Skin no rashes or lesions noted and no wounds MDM MDM MDM Narrative Medical decision making narrative: Similar to before, this patient has a chronic issue with regards to her joints. She has seen rheumatology and is treated with Enbrel. I am not sure how long it takes for this to take effect, but she just received her second injection. Her mom is with her. She is advocating for her. She states I do not know why no one will treat her pain to which I responded that her theoretical physics teacher appears to be treating the problem which should result in improvement of her pain, and I do not think putting her on narcotics is the right answer. In the end the 2 of them understand this, and I do not want to add addiction or constipation to her symptoms, however her mom states she is concerned because she cannot sleep and she will not eat because since she is in so much pain. I am treating her with analgesics here, I agreed to give her a 2-day prescription for some [place]. She is scheduled to see someone in pain management within the next week. She does not know if she had a Lyme serology ordered, so I will have that done prior to discharge in order to hopefully rule that out. Discharge Plan Triage Chief Complaint: General Illness ED Provider: Kang Lester Dx/Rx/DC Orders Clinical Impression: Diffuse arthralgia Instructions: ED Arthralgia Prescriptions: New hydrocodone-acetaminophen [hydrocodone-acetaminophen] 5-325 mg tablet 1 tab PO Q4H PRN PRN (Reason: Pain) 2 Days Qty: 10 0RF No Action duloxetine 60 mg capsule,delayed release(DR/EC) 60 mg PO DAILY Enbrel SureClick 50 mg/mL (1 mL) pen injector 50 mg SUBCUT QWEEK [id number]-[id number]-oreg-capryl 100 mg-150 mg- 50 mg-150 mg Capsule 1 cap PO DAILY hydroxychloroquine 1.5 tablet DAILY Primary Care Provider: Xavier Barrett Referrals: Elizabeth Hughes MD [Non-Staff] - Xavier Barrett MD [Primary Care Provider] - Kirti Linder MD [[facility]] - Activity Restrictions/Additional Instructions: Follow-up with your doctor and/or get into the [facility] portal to review your lab results. Disposition Disposition: Home, Self Care
[2021-10-29] MEDS: HYDROcodone Bitartrate/Apap 5/325 Tablet PO (11:09)
[2021-10-29] MEDS: Ketorolac 60 MG/2 ML Vial IM (11:11)
[2021-10-29 11:22] LABS: Lyme Ab Screen Interpretation REF LAB
[2021-10-29 11:42] VITALS: BP 129/81; PULSE 61; RESP 18; O2SAT 96
[2021-10-30 13:07] LABS: Lyme Scn Total Ab w/Rflx Negative (Negative)
== END 2021-10-29 11:43 | disposition home or self-care (01) ==
LOC: ED 11:07
PROVIDERS: Emergency Provider Emergency Medicine; PCP Pediatrics; Visit Provider Emergency Medicine
DX: M06.9 Rheumatoid arthritis, unspecified (principal); F41.9 Anxiety disorder, unspecified; F32.A Depression, unspecified; Z86.16 Personal history of COVID-19; Z79.899 Other long term (current) drug therapy
CPT/HCPCS: 36415; 86618; 96372; 99283

== ENCOUNTER → 2022-01-21 | Outpatient (CLI) | payer BC, SELFPAY ==
[2022-01-21 17:56] LABS: Absolute Lymphocyte Count 2.86 X10^3/uL (0.83-4.51); Absolute Neutrophil Count 2.4 X10^3/uL (2.0-7.7); Basophil# 0.04 X10^3/uL; Basophil% 0.7 % (0-1); Eosinophil# 0.11 X10^3/uL; Eosinophils% 1.9 % (0-5); Hematocrit 39.5 % (37-47); Hemoglobin 12.7 g/dL (12.0-15.0); Lymphocyte # 2.86 X10^3/ul (0.83-4.51); Lymphocyte % 48.3 % (19-41); Mean Corp Hgb Conc 32.2 g/dL (32-36); Mean Corpuscular Hgb 25.7 pg (27.0-32.0); Monocyte# 0.52 X10^3/uL; Monocyte% 8.8 % (0-10); NRBC Flagged by Analyzer 0 % (0-5); Neutrophil # 2.38 X10^3/uL (2.7-7.7); Neutrophil % 40.1 % (47-70); Platelet Count 435 K/mm3 (150-450); RBC Distribution Width CV 15.1 % (11.6-14.6); RBC Distribution Width SD 43.7 fl (35.1-43.9); Red Blood Count 4.94 M/mm3 (4.2-5.4); White Blood Count 5.9 K/mm3 (4.4-11.0)
[2022-01-21 18:29] LABS: ALB/GLOB Ratio 0.9 RATIO (0.9-2.4); AST(SGOT) 19 U/L (15-37); Alanine Aminotransfer ALT/SGPT 29 U/L (13-56); Albumin, Serum 3.5 g/dL (3.2-5.0); Alkaline Phosphatase 45 U/L (45-117); Anion Gap 9 (5-15); BUN 9 mg/dL (7-18); BUN/Creat Ratio 11.7 RATIO (10-20); Calcium,Total 9.2 mg/dL (8.5-10.1); Chloride 108 mmol/L (98-107); Creatinine, Serum 0.77 mg/dL (0.55-1.02); EST Glomerular Filtration Rate 101 mL/min (>60); Est Glom Filt Rate - Afr Amer 122 mL/min (>60); Globulin 3.7 g/dL (2.2-4.2); Glucose 82 mg/dL (74-106); Potassium 4.2 mmol/L (3.5-5.1); Protein, Total 7.2 g/dL (6.4-8.2); Sodium Level 139 mmol/L (136-145)
== END | disposition home or self-care (01) ==
LOC: MTLAB 16:05
PROVIDERS: PCP Nurse Practitioner Family; Referring Provider Internal Medicine Rheumatology; Visit Provider Internal Medicine Rheumatology
DX: M06.09 Rheumatoid arthritis without rheumatoid factor, multiple sites (principal); M79.7 Fibromyalgia; Q61.3 Polycystic kidney, unspecified; N39.41 Urge incontinence; G43.109 Migraine with aura, not intractable, without status migrainosus; F32.A Depression, unspecified; F95.2 Tourette's disorder; Z79.899 Other long term (current) drug therapy
CPT/HCPCS: 36415; 80053; 85025

== ENCOUNTER 2022-02-14 18:01 | Emergency (ER) | payer BC, SELFPAY ==
[2022-02-14 18:02] VITALS: BP 192/105; PULSE 105; RESP 16; TEMP 37.1; O2SAT 97; BMI 21.4
[2022-02-14 18:12] VITALS: BP 154/102; PULSE 98; RESP 24; TEMP 37.1; O2SAT 98
--- NOTE | 2022-02-14 18:30 | CT_ITS ---
STUDY: CT Abdomen And Pelvis W/O Contrast Injection 02/14/2022 8:18 PM REASON FOR EXAM: Female, 21 years old. ABDOMINAL PAIN Pain TECHNIQUE: Transaxial images were obtained without oral contrast, and without intravenous contrast. Individualized dose optimization techniques were used for this CT. COMPARISON: 02.25.21. FINDINGS: The visualized lung bases are unremarkable. The visualized portions of the heart are within normal limits. Normal liver. Normal gallbladder and extrahepatic biliary system. Normal spleen. Normal pancreas. Normal bilateral adrenal glands. There is a 29 mm hypodensities in the right kidney. There is a stable hypodensity of the left kidney. These are consistent for cysts. No follow up required. Stable calcification of the right kidney. This measures 12 mm. 3 mm nonobstructive calculus in the posterior lower pole calyx of the right kidney. Normal visualized stomach. Normal small intestine. Stool throughout the colon. There is non-visualization of the appendix. There are no acute findings of the abdominal aorta. Normal inferior vena cava. Subcentimeter mesenteric lymph nodes. Normal urinary bladder. There is a lucent circular ring within the vaginal cuff. This is likely a -control ring. There is a right side sided subcutaneous implanted electronic device with leads extending into the spinal canal. This is likely an SCS (spinal cord stimulator). There is an umbilical hernia containing fat. Normal osseous structures. CT/Abdomen/Pelvis without Cont IMPRESSION: (NOT LISTED IN ORDER OF SIGNIFICANCE) Stable bilateral renal cyst Stable calculi of the right kidney. Other findings as above. Electronically Signed: Rafiq Villagomez MD at 20:20 EST ,
--- NOTE | 2022-02-14 18:31 | EKG12_ITS ---
Test Reason : N/V Blood Pressure : / mmHG Vent. Rate : 096 BPM Atrial Rate : 096 BPM P-R Int : 152 ms QRS Dur : 068 ms QT Int : 352 ms P-R-T Axes : 072 070 040 degrees QTc Int : 444 ms Normal sinus rhythm with sinus arrhythmia Normal ECG Confirmed by BRANDY MALIN, JUDITH ([id number]), design editor DAVON ZHU ([id number]) on 02/16/2022 1:49:31 PM Referred By: Confirmed By:JUDITH NAVA MD
--- NOTE | 2022-02-14 18:32 | EX.ED.DYSGE1 ---
HPI History of Present Illness Chief Complaint: Nausea/Vomiting Narrative Narrative: 21-year-old female past medical history of polycystic kidney disease, fibromyalgia, PTSD, presents with multiple somatic complaints ranging from bilateral flank pain to chest pain. She states her symptoms began yesterday. She said multiple episodes of vomiting, at least 10 times. She was just vomiting fluid but today she cannot keep anything down and has been vomiting her food back up. States she has bilateral flank pain but denies any dysuria or hematuria. Additionally she has pain all across the precordium of her chest. No exacerbating or alleviating factors. No fevers or chills. Rare cough. She states she does not feel well, and her problem started with the bilateral flank pain. [facility] Medical History Anemia Anxiety Blackout Bladder disease Depression Easy bruising Excessive bleeding Fibromyalgia History of COVID-19 Injury of head and neck Marijuana use Nocturia Polycystic kidney disease Rheumatoid arthritis Smoker Tourettes syndrome Urge incontinence Urinary tract infection Wears glasses Home Medications duloxetine 60 mg capsule,delayed release 60 mg PO DAILY 10/29/21 [History Last Taken Unknown] etanercept 50 mg/mL (1 mL) subcutaneous pen injector (Enbrel SureClick) 50 mg subcut QWEEK 10/29/21 [History Last Taken Unknown] hydrocodone-acetaminophen 5-325mg 5mg-325mg 1 tab PO Q4H PRN PRN Pain 2 days #10 TABLETS 10/29/21 [Rx Last Taken Unknown] hydroxychloroquine 1.5 tablet DAILY 10/29/21 [History Last Taken Unknown] tumeric 100 mg-glenroy 150 mg-olive 50 mg-oreg 150 mg-caprylate capsule 1 cap PO DAILY 10/29/21 [History Last Taken Unknown] Allergy/AdvReac Type Severity Reaction Status Date / Time vancomycin AdvReac Itching Verified 02/14/22 18:02 Family History Mother CVA (cerebral vascular accident) Surgical History Hemangioma Hx of cystoscopy Social History household members: family Smoking Status: Current every day smoker tobacco type: cigarettes and smokeless tobacco alcohol intake: never substance use type: does not use ROS ROS ED ROS Narrative Constitutional: No fever, no chills. HEENT: No sore throat. No neck pain. No loss of vision. No rhinorrhea. Cardiovascular: Positive anterior chest pain. No palpitations. No pedal edema. Respiratory: No cough, no shortness of breath. Abdominal: No abdominal pain. Positive nausea. At least 10 episodes of nonbloody vomiting. No diarrhea. Genitourinary: No dysuria. No hematuria. Bilateral flank pain Musculoskeletal: No myalgias. No arthralgias. Neurologic: No headaches. No dizziness. No lightheadedness. Skin: No rash. No change in color. Psychiatric: No depression. No anxiety. EXAM Physical Exam Narrative Exam Narrative: Afebrile. Vital signs noted. HEENT: Normocephalic. Atraumatic. PERRL, EOMI. Neck soft and supple. No point tenderness or step off. Cardiovascular: Regular rate and rhythm. No murmurs, rubs, or gallops appreciated. Respiratory: No tachypnea. Lungs clear to auscultation bilaterally. Gastrointestinal: Abdomen soft, nontender, with normoactive bowel sounds. No rebound or guarding. Neurological: Awake. Alert. Nonfocal, nonlateralizing. Skin: No rash. Normal color. No pallor. Musculoskeletal: No pedal edema. Full range of motion extremities. Const Vital Signs: 02/14/22 18:02 02/14/22 18:12 02/14/22 18:12 Temperature 98.8 F 98.8 F Temperature Source Temporal Temporal Pulse Rate 105 H 98 98 Respiratory Rate 16 24 H 24 H Blood Pressure 192/105 H 154/102 H 154/102 H Blood Pressure Mean 134 119 119 Pulse Ox 97 98 98 Oxygen Delivery Method Room Air Room Air Room Air 02/14/22 19:35 02/14/22 19:35 Temperature 98.9 F 98.9 F Temperature Source Oral Oral Pulse Rate 78 98 Respiratory Rate 24 H 24 H Blood Pressure 107/71 107/71 Blood Pressure Mean 83 83 Pulse Ox 99 99 Oxygen Delivery Method Room Air Room Air MDM MDM MDM Narrative Medical decision making narrative: Patient initially had elevated blood pressure recorded is 192/105, it has come down to 154/102 by itself. She was tachycardic initially but on my exam and currently it is normal at 98. Pulse ox is 98% on room air. Comprehensive work-up was pursued, especially for her history of polycystic kidney disease and her bilateral flank pain I will obtain a UA along with CT imaging without contrast. Basic laboratories will also be obtained including CBC and CMP along with a lipase to look for the cause of her multiple episodes of vomiting. However, she has a nontender abdomen. Regarding her anterior chest pain, I will obtain a troponin along with a chest x-ray and EKG. I do feel that this would be a 6-hour troponin, and additionally she has low risk factors for coronary artery disease. Her blood pressure is now normalized to 107/71 with a pulse of 98. She remains afebrile. I reviewed her laboratory work and she has a white count slightly elevated 11.1 which I think is nonspecific, hemoglobin normal at 12.4, platelet count normal at 364. Potassium slightly low at 3.4, BUN and creatinine are normal. AST and ALT are normal. Lipase normal at 108. Serum is negative. She complained of chest pain so she was administered Toradol 30 mg intravenously. EKG was obtained and interpreted by myself which shows normal sinus rhythm at [address] changes, no STEMI. There may be a sinus arrhythmia. There is a lot of baseline artifact from movement. Chest x-ray interpreted by myself shows no acute process. CT of the flank was reviewed. I reviewed the radiology report, there is no acute process. Urinalysis shows no overwhelming infection or ketones. I do not feel antibiotics are indicated. There is been no vomiting here in the emergency department. I feel she has a negative work-up. She can be discharged safely home with follow-up. I am unsure as to the cause of her chest pain but she also has a negative troponin and negative chest x-ray and EKG. Prior to discharge she asked if we did an influenza test, and I discussed with her the utility of it and I do not think it is indicated as she has a negative work-up here regardless with no pneumonia, and a negative CT scan, that I do not feel it would add anything. For her nausea and vomiting I offered to write her Zofran but she states she has it at home, so I offered her Phenergan suppositories and she declined. She will follow-up with her primary care provider. Return instructions to the emergency department were reviewed. Disposition is discharged home in stable condition. Lab Data Attestation: I reviewed the patient's lab results. Labs: Laboratory Results - last 24 hr 02/14/22 02/14/22 02/14/22 18:45 18:45 18:45 WBC 11.1 H RBC 4.93 Hgb 12.4 Hct 38.0 MCV 77.1 L MCH 25.2 L MCHC 32.6 RDW Std Deviation 40.3 RDW Coeff of Tiffany 14.6 Plt Count 364 MPV 9.5 Immature Gran % (Auto) 0.400 Neut % (Auto) 73.7 H Lymph % (Auto) 13.9 L Smyth % (Auto) 11.4 H Eos % (Auto) 0.2 Baso % (Auto) 0.4 Absolute Neuts (auto) 8.2 H Absolute Lymphs (auto) 1.55 Nucleated RBC % 0 Sodium 136 Potassium 3.4 L Chloride 107 Carbon Dioxide 20.0 L Anion Gap 9 BUN 7 Creatinine 0.89 Estim Creat Clear Calc 87.07 Est GFR (MDRD) Af Amer 103 Est GFR (MDRD) Non-Af 85 BUN/Creatinine Ratio 7.9 L Glucose 100 Calcium 8.8 Total Bilirubin 0.30 AST 18 ALT 23 Alkaline Phosphatase 46 Troponin I High Sens 5 Total Protein 7.1 Albumin 2.9 L Globulin 4.2 Albumin/Globulin Ratio 0.7 L Lipase 108 Serum , Qual NEGATIVE Urine Color Urine Clarity Urine pH Ur Specific [place] Urine Protein Urine Glucose (UA) Urine Ketones Urine Occult Blood Urine Nitrite Urine Bilirubin Urine Urobilinogen Ur Leukocyte Esterase Urine RBC Urine WBC Ur Squamous Epith Cells Urine Bacteria Urine Mucus 02/14/22 18:45 WBC RBC Hgb Hct MCV MCH MCHC RDW Std Deviation RDW Coeff of Tiffany Plt Count MPV Immature Gran % (Auto) Neut % (Auto) Lymph % (Auto) S[place]th % (Auto) Eos % (Auto) Baso % (Auto) Absolute Neuts (auto) Absolute Lymphs (auto) Nucleated RBC % Sodium Potassium Chloride Carbon Dioxide Anion Gap BUN Creatinine Estim Creat Clear Calc Est GFR (MDRD) Af Amer Est GFR (MDRD) Non-Af BUN/Creatinine Ratio Glucose Calcium Total Bilirubin AST ALT Alkaline Phosphatase Troponin I High Sens Total Protein Albumin Globulin Albumin/Globulin Ratio Lipase Serum , Qual Urine Color Yellow Urine Clarity Clear Urine pH 7.0 Ur Specific [place] 1.010 Urine Protein 30 H Urine Glucose (UA) Normal Urine Ketones Negative Urine Occult Blood 50 H Urine Nitrite Negative Urine Bilirubin Negative Urine Urobilinogen Normal Ur Leukocyte Esterase 500 H Urine RBC 0 SEEN Urine WBC 5-10 SEEN Ur Squamous Epith Cells 0-5 SEEN Urine Bacteria RARE Urine Mucus 0 SEEN Radiography Diagnostic Testing: Clinical Impression(s) from Imaging Studies Abdomen/Pelvis CT 02/14/22 18:30 IMPRESSION: (NOT LISTED IN ORDER OF SIGNIFICANCE) Stable bilateral renal cyst Stable calculi of the right kidney. Other findings as above. Electronically Signed: Rafiq Villagomez MD at 20:20 EST , Chest X-Ray 02/14/22 19:05 IMPRESSION: No radiographic evidence of acute cardiopulmonary disease. Electronically Signed: Espinoza Mccrary MD, IJEOMA at 19:19 EST , Discharge Plan Triage Chief Complaint: Nausea/Vomiting ED Provider: Miguel Storm Dx/Rx/DC Orders Clinical Impression: Bilateral flank pain, Chest pain, Nausea and vomiting Instructions: ED Chest Pain, Uncertain Cause, ED Flank Pain, Uncertain Cause, ED Vomiting (Adult) Prescriptions: No Action duloxetine 60 mg capsule,delayed release(DR/EC) 60 mg PO DAILY Enbrel SureClick 50 mg/mL (1 mL) pen injector 50 mg SUBCUT QWEEK lbminxd-dfyh-bsume-oreg-capryl 100 mg-150 mg- 50 mg-150 mg Capsule 1 cap PO DAILY hydroxychloroquine 1.5 tablet DAILY hydrocodone-acetaminophen [hydrocodone-acetaminophen] 5-325 mg tablet 1 tab PO Q4H PRN PRN (Reason: Pain) 2 Days Qty: 10 0RF Primary Care Provider: Suhail Collins NP Referrals: Suhail Collins DELIVERY ASSOCIATE, DELIVERY ASSOCIATE-C [Primary Care Provider] - 2 Days Disposition Disposition: Home, Self Care
[2022-02-14] MEDS: Ondansetron 4 MG/2 ML Vial IV (18:42)
[2022-02-14] MEDS: 0.9% Normal Saline 1,000 ML 1000 ML IV (18:42)
[2022-02-14 18:49] LABS: Absolute Lymphocyte Count 1.55 X10^3/uL (0.83-4.51); Absolute Neutrophil Count 8.2 X10^3/uL (2.0-7.7); Basophil# 0.05 X10^3/uL; Basophil% 0.4 % (0-1); Color, Urine Yellow (Yellow); Eosinophil# 0.02 X10^3/uL; Eosinophils% 0.2 % (0-5); Glucose, Dipstick Normal (Normal); Hemoglobin 12.4 g/dL (12.0-15.0); Ketone-Dipstick Negative (Negative); Leukocyte Esterase-Dipstick 500 /ul (Negative); Lymphocyte # 1.55 X10^3/ul (0.83-4.51); Lymphocyte % 13.9 % (19-41); Mean Corp Hgb Conc 32.6 g/dL (32-36); Mean Corpuscular Hgb 25.2 pg (27.0-32.0); Mean Corpuscular Volume 77.1 fL (81-99); Mean Platelet Vol. 9.5 fl (6.2-12.0); Monocyte# 1.27 X10^3/uL; Monocyte% 11.4 % (0-10); Mucous, Urine 0 SEEN /hpf (<or=2+); NRBC Flagged by Analyzer 0 % (0-5); Neutrophil # 8.18 X10^3/uL (2.7-7.7); Neutrophil % 73.7 % (47-70); Nitrite-Dipstick Negative (Negative); Occult Blood-Urine 50 /ul (Negative); Platelet Count 364 K/mm3 (150-450); Protein-Dipstick 30 mg/dl (Negative); RBC Distribution Width CV 14.6 % (11.6-14.6); RBC Distribution Width SD 40.3 fl (35.1-43.9); Red Blood Cells-Urine 0 SEEN /hpf (0-5); Red Blood Count 4.93 M/mm3 (4.2-5.4); Urine Bilirubin Dipstick Negative (Negative); Urine Clarity Clear (Clear); Urine Urobilinogen Normal (Normal); White Blood Count 11.1 K/mm3 (4.4-11.0)
--- NOTE | 2022-02-14 19:05 | RAD_ITS ---
INDICATION: chest pain EXAMINATION/TECHNIQUE: X-RAY - XR Chest 1 View COMPARISON: 09/23/2021 FINDINGS: LINES/DEVICES: None. LUNGS: No consolidation, edema or effusion. No pneumothorax. MEDIASTINUM AND CARDIOVASCULAR STRUCTURES: Cardiac silhouette not enlarged. Central airways and mediastinal contour are unremarkable. BONES AND SOFT TISSUES: Unremarkable. Stable exam. RAD/Chest 1 View (Portable) IMPRESSION: No radiographic evidence of acute cardiopulmonary disease. Electronically Signed: Espinoza Mccrary MD, IJEOMA at 19:19 EST ,
[2022-02-14 19:24] LABS: White Blood Cells 5-10 SEEN /hpf (0-5)
[2022-02-14 19:25] LABS: Bacteria RARE /hpf (None Seen); Squamous Epithelial Cells - UA 0-5 SEEN /hpf (5-10)
[2022-02-14 19:28] LABS: Internal QC Validated? YES +Cl - CLEAR BKGD; Pregnancy, Serum, hCG Quali. NEGATIVE Negative
[2022-02-14 19:35] VITALS: BP 107/71; PULSE 78; PULSE 98; RESP 24; TEMP 37.2; O2SAT 99
[2022-02-14 19:37] LABS: ALB/GLOB Ratio 0.7 RATIO (0.9-2.4); AST(SGOT) 18 U/L (15-37); Alanine Aminotransfer ALT/SGPT 23 U/L (13-56); Albumin, Serum 2.9 g/dL (3.2-5.0); Alkaline Phosphatase 46 U/L (45-117); Anion Gap 9 (5-15); BUN 7 mg/dL (7-18); BUN/Creat Ratio 7.9 RATIO (10-20); Calcium,Total 8.8 mg/dL (8.5-10.1); Chloride 107 mmol/L (98-107); Creatinine, Serum 0.89 mg/dL (0.55-1.02); EST Glomerular Filtration Rate 85 mL/min (>60); Est Glom Filt Rate - Afr Amer 103 mL/min (>60); Estimated Creatinine Clearance 87.07 ml/min; Globulin 4.2 g/dL (2.2-4.2); Glucose 100 mg/dL (74-106); Lipase 108 U/L (73-393); Potassium 3.4 mmol/L (3.5-5.1); Protein, Total 7.1 g/dL (6.4-8.2); Sodium Level 136 mmol/L (136-145); Troponin-I HS 5 pg/mL (3.0-54.0)
[2022-02-14] MEDS: Ketorolac 30 MG/ML Syringe IV (20:17)
[2022-02-14 20:52] VITALS: BP 128/68; PULSE 79
== END 2022-02-14 20:56 | disposition home or self-care (01) ==
PROVIDERS: Emergency Provider Emergency Medicine; PCP Nurse Practitioner Family; Visit Provider Emergency Medicine
DX: R10.9 Unspecified abdominal pain (principal); R07.9 Chest pain, unspecified; R11.2 Nausea with vomiting, unspecified; F17.210 Nicotine dependence, cigarettes, uncomplicated; Z86.16 Personal history of COVID-19
CPT/HCPCS: 71045; 74176; 80053; 81001; 83690; 84484; 84703; 85025; 93005; 96361; 96374; 96375; 99283; J7030; A4216; J2405

== ENCOUNTER → 2022-08-04 | Outpatient (CLI) | payer BC, SELFPAY ==
--- NOTE | 2022-08-05 17:37 | PCM.TILTTABL ---
Staff Staff: Bren Hunter and Lexy Vargas Summary Pre Test Resting HR: 74 Pre Test Resting BP: 126/96 Minimum Test HR: 74 Maximum Test HR: 137 Minimum Test BP: 90/74 Maximum Test BP: 147/80 Reason for Test Termination: Reached Maximum Test Time Physician Tilt Table Report Patient's Physicians Primary Care Physician: Ap Payan Indications/Diagnosis: Postural orthostatic tachycardia syndrome. Procedure Comments: The patient was brought to the noninvasive lab in the postabsorptive nonsedated state. Informed consent was obtained. EKG was performed demonstrating a heart rate of 74 bpm and blood pressure is 126/96 mmHg. The patient was then placed in the 70 degree head upright tilt position. Continuous EKG monitoring was performed. 4 minutes into the tilt the heart rate went up to 237 bpm with a blood pressure of 147/80 mmHg. Patient had started becoming diaphoretic with irregular breathing. After 20 minutes in this position the patient was then administered sublingual nitroglycerin. Patient continued to testing with heart rate and blood pressure being measured. No further symptomatology was noted. The patient maintained sinus rhythm with sinus tachycardia noted. No syncope was noted. Summary: Increased heart rate response with head upright tilt position suggestive of postural orthostatic tachycardia syndrome.
[2022-08-05 17:41] VITALS: BP 126/96; BP 147/80; BP 90/74
== END | disposition home or self-care (01) ==
LOC: CVS 08:59
PROVIDERS: PCP Family Medicine; Referring Provider Internal Medicine Cardiovascular Disease; Visit Provider Internal Medicine Cardiovascular Disease
DX: G90.A Postural orthostatic tachycardia syndrome [POTS] (principal)
CPT/HCPCS: 93660; J7040; A4216

== ENCOUNTER 2022-09-12 20:56 | Emergency (ER) | payer BC, SELFPAY ==
[2022-09-12 20:57] VITALS: BP 264/70; PULSE 124; RESP 22; TEMP 35.7; O2SAT 98; BMI 20.9
[2022-09-12 21:00] VITALS: BP 264/70; PULSE 124; RESP 22; TEMP 35.7; O2SAT 98
[2022-09-12 21:10] VITALS: BP 150/100; PULSE 94; RESP 17; TEMP 36.6; O2SAT 94
[2022-09-12 21:39] VITALS: BP 146/136; PULSE 109; RESP 21
--- NOTE | 2022-09-12 22:00 | ED.VIS.FEGU ---
HPI HPI - Female History of Present Illness Chief Complaint: Complaint Detail of Chief Complaint: Nausea and vomiting. Dysuria. Informant: patient and spouse/S.O. Pain Current Severity: Mild Maximum Severity: Mild Bleeding Issue: Negative for Vaginal bleeding Associated Symptoms Associated Symptoms: Positive for Dysuria; Negative for Frequency, Urgency or Hematuria Narrative Narrative: 22-year-old female history of POTS, polycystic kidney disease, Tourette's, fibromyalgia, PTSD. Believes she has a UTI. Complaining of nausea and vomiting since yesterday morning. Denies fever. Complaining of dysuria. Similar symptoms from prior UTI. Last menstrual period approximately 2 weeks ago. Does not believe she is . Prior similar symptoms: Yes Recent Illness/Hospitalization: No PFSH PFSH Medical History Anemia Anxiety Blackout Bladder disease Depression Easy bruising Excessive bleeding Fibromyalgia History of COVID-19 Injury of head and neck Marijuana use Nocturia Polycystic kidney disease POTS (postural orthostatic tachycardia syndrome) Rheumatoid arthritis Smoker Tourettes syndrome Urge incontinence Urinary tract infection Wears glasses Home Medications duloxetine 60 mg capsule,delayed release 60 mg PO DAILY 10/29/21 [History Last Taken Unknown] etanercept 50 mg/mL (1 mL) subcutaneous pen injector (Enbrel SureClick) 50 mg subcut QWEEK 10/29/21 [History Last Taken Unknown] hydrocodone-acetaminophen 5-325mg 5mg-325mg 1 tab PO Q4H PRN PRN Pain 2 days #10 TABLETS 10/29/21 [Rx Last Taken Unknown] hydroxychloroquine 1.5 tablet DAILY 10/29/21 [History Last Taken Unknown] tumeric 100 mg-glenroy 150 mg-olive 50 mg-oreg 150 mg-caprylate capsule 1 cap PO DAILY 10/29/21 [History Last Taken Unknown] Allergy/AdvReac Type Severity Reaction Status Date / Time vancomycin AdvReac Itching Verified 09/12/22 21:01 Family History Mother CVA (cerebral vascular accident) Surgical History Hemangioma Hx of cystoscopy Social History household members: family Smoking Status: Current every day smoker tobacco type: cigarettes and smokeless tobacco alcohol intake: never substance use type: does not use ROS ROS ED ROS Narrative Nausea and vomiting. Dysuria. Review of Systems ROS Unobtainable: Denies due to encephalopathy Constitutional Constitutional ED: Denies chills or fever(s) Eyes Eyes: Denies blurry vision ENT ENT ED: Denies ear pain Cardiovascular Cardiovascular: Denies chest pain Respiratory/Chest Respiratory/Chest: Denies cough Gastrointestinal Gastrointestinal: Reports nausea and vomiting; Denies abdominal pain, constipation, diarrhea or melena Genitourinary Genitourinary ED: Reports dysuria and hematuria Musculoskeletal Musculoskeletal: Denies arthralgias Integumentary Denies abscess Neurologic Neurologic: Denies headache(s) Psychiatric Psychiatric: Denies anxiety Endocrine Endocrinology: Denies heat intolerance Hematologic/Lymphatic Hematologic/Lymphatic: Denies easy bleeding Allergic/Immunologic Allergic/Immunologic ED: Denies mouth swelling EXAM Physical Exam Narrative Exam Narrative: 22-year-old female initial blood pressure was 264/70 but repeated was 146/136 and to be repeated. She is very anxious and emotionally upset. HEENT exam unremarkable. Moist mucous membranes. Neck nontender no JVD. No lymphadenopathy. Lungs clear to auscultation bilateral. Heart regular rhythm rate about 90 no murmur. Chest wall nontender. Abdomen soft nondistended normal bowel sounds no peritoneal signs. No right upper or right lower quadrant tenderness. No signs of obstruction. Moving all 4 extremities. Multiple tattoos. No edema. No redness. Back nontender. Neurologically she is awake and alert with no focal motor deficits. Const Vital Signs: 09/12/22 20:57 09/12/22 21:00 09/12/22 21:10 Temperature 96.2 F L 96.2 F L 97.8 F Temperature Source Temporal Temporal Oral Pulse Rate 124 H 124 H 94 Respiratory Rate 22 H 22 H 17 Blood Pressure 264/70 H 264/70 H 150/100 H Blood Pressure Mean 134 134 116 Pulse Ox 98 98 94 Oxygen Delivery Method Room Air Room Air Room Air 09/12/22 21:39 09/12/22 22:22 Temperature 97.7 F L Temperature Source Oral Pulse Rate 109 H 84 Respiratory Rate 21 H 18 Blood Pressure 146/136 H 131/95 H Blood Pressure Mean 139 107 Pulse Ox 98 Oxygen Delivery Method Room Air Positive well nourished and well developed; Negative for obese, cachectic, contractures or unkempt General Appearance ED: well developed and NAD; Negative for unkempt, cachectic, contractures, odor of alcohol detected or pallor Nutritional Appearance: Negative for cachectic or obese HEENT Reports moist mucous membranes Negative for trauma or tenderness Eyes PERRL and EOMs intact bilaterally General Eye ED: Negative for pale conjunctiva or scleral icterus Neck no lymphadenopathy, supple and no JVD General: Negative for other Thyroid: Negative for tender Chest Wall inspection of chest normal and palpation of chest normal Chest: Negative for other Resp normal respiratory effort and clear to auscultation bilaterally Effort and Inspection: Negative for pain with movement Auscultation: Negative for rales, rhonchi or wheezes Cardio regular rate, regular rhythm, S1 normal heart sound, no murmurs and no JVD Rate: Negative for bradycardia or tachycardic Rhythm: Negative for abnormal rhythm GI normal to inspection, nondistended, normoactive bowel sounds, soft to palpation, non-tender, non-distended and no masses Auscultation: normoactive bowel sounds Palpation: Negative for tender, guarding, rigid, hepatomegaly, splenomegaly or mass Back/Spine no CVA tenderness General Back: Negative for CVA tenderness Cervical Spine: Negative for cervical spine tenderness Thoracic Spine / Upper Back: Negative for thoracic spinal tenderness Lumbar Spine / Lower Back: Negative for lumbar spinal tenderness Sacrum: Negative for other Extremity normal to inspection and full ROM General Extremety ED: Negative for edema or tenderness General Extremity: Negative for edema Neuro oriented x3 and CN's II-XII intact bilaterally Sensorium / Orientation: alert, oriented to person, oriented to place and oriented to time; Negative for confused, lethargic or stuporous Motor Exam: strength 5/5 throughout Psych mental status grossly normal Appearance: Negative for unkempt Attitude: No agitated Speech: No other Mood & Affect: anxious; Negative for depressed Skin no rashes or lesions noted and no wounds General Skin Exam: Negative for jaundice or pallor Rashes: No rashes noted Trauma: Negative for other MDM MDM MDM Narrative Medical decision making narrative: 22-year-old female complicated past medical history with nausea and vomiting. Possible UTI. Screening labs will be obtained. Urinalysis. She will be treated with IV fluids. IV Zofran for nausea. Toradol for pain. Repeat exam patient is doing better at 10:35 PM. We have gone over her current test results. Awaiting her to give us urine for urinalysis. She would prefer not to be straight cathed. Patient be turned over to the overnight physician. If the urine is infected she will be treated with antibiotics as an outpatient. If not she will be discharged home with a prescription for Zofran. Outpatient follow-up. Lab Data Attestation: I reviewed the patient's lab results. Lab results narrative: CBC is unremarkable. White count of 8.3. H&H of 15.4 and 46. Platelets 450,000. Electrolytes show potassium 3.3 just below normal. Anion gap of 13. Normal BUN of 12 creatinine of 1. Glucose 103. Serum test negative. Labs: Laboratory Results - last 24 hr 09/12/22 22:08 WBC 8.3 RBC 5.59 H Hgb 15.4 H Hct 46.1 MCV 82.5 MCH 27.5 MCHC 33.4 RDW Std Deviation 37.2 RDW Coeff of Tiffany 12.3 Plt Count 450 MPV 9.9 Immature Gran % (Auto) 0.400 Neut % (Auto) 76.1 H Lymph % (Auto) 14.2 L [place] % (Auto) 8.1 Eos % (Auto) 0.6 Baso % (Auto) 0.6 Absolute Neuts (auto) 6.3 Absolute Lymphs (auto) 1.17 Nucleated RBC % 0 Sodium 136 Potassium 3.3 L Chloride 104 Carbon Dioxide 19.0 L Anion Gap 13 BUN 12 Creatinine 1.02 Estim Creat Clear Calc 75.34 Est GFR (MDRD) Af Amer 88 Est GFR (MDRD) Non-Af 73 BUN/Creatinine Ratio 11.8 Glucose 103 Calcium 10.0 Serum , Qual NEGATIVE Discharge Plan Triage Chief Complaint: Complaint ED Provider: Tan Bojorquez Dx/Rx/DC Orders Prescriptions: No Action duloxetine 60 mg capsule,delayed release(DR/EC) 60 mg PO DAILY Enbrel SureClick 50 mg/mL (1 mL) pen injector 50 mg SUBCUT QWEEK tmxzqds-rlcf-iiduz-oreg-capryl 100 mg-150 mg- 50 mg-150 mg Capsule 1 cap PO DAILY hydroxychloroquine 1.5 tablet DAILY hydrocodone-acetaminophen [hydrocodone-acetaminophen] 5-325 mg tablet 1 tab PO Q4H PRN PRN (Reason: Pain) 2 Days Qty: 10 0RF Primary Care Provider: Care Physician,No Primary Referrals: Ap Payan MD [Non-Staff] -
[2022-09-12] MEDS: Ondansetron 4 MG/2 ML Vial IV (22:14)
[2022-09-12] MEDS: Ketorolac 15 MG/ML Vial IV (22:14)
[2022-09-12] MEDS: 0.9% Normal Saline 1,000 ML 1000 ML IV (22:14)
[2022-09-12 22:15] LABS: Absolute Lymphocyte Count 1.17 X10^3/uL (0.83-4.51); Absolute Neutrophil Count 6.3 X10^3/uL (2.0-7.7); Basophil# 0.05 X10^3/uL; Basophil% 0.6 % (0-1); Eosinophil# 0.05 X10^3/uL; Eosinophils% 0.6 % (0-5); Hematocrit 46.1 % (37-47); Hemoglobin 15.4 g/dL (12.0-15.0); Lymphocyte # 1.17 X10^3/ul (0.83-4.51); Lymphocyte % 14.2 % (19-41); Mean Corp Hgb Conc 33.4 g/dL (32-36); Mean Corpuscular Hgb 27.5 pg (27.0-32.0); Mean Corpuscular Volume 82.5 fL (81-99); Mean Platelet Vol. 9.9 fl (6.2-12.0); Monocyte# 0.67 X10^3/uL; Monocyte% 8.1 % (0-10); NRBC Flagged by Analyzer 0 % (0-5); Neutrophil # 6.28 X10^3/uL (2.7-7.7); Neutrophil % 76.1 % (47-70); Platelet Count 450 K/mm3 (150-450); RBC Distribution Width CV 12.3 % (11.6-14.6); RBC Distribution Width SD 37.2 fl (35.1-43.9); Red Blood Count 5.59 M/mm3 (4.2-5.4); White Blood Count 8.3 K/mm3 (4.4-11.0)
[2022-09-12 22:22] VITALS: BP 131/95; PULSE 84; RESP 18; TEMP 36.5; O2SAT 98
[2022-09-12 22:24] LABS: Internal QC Validated? YES +Cl - CLEAR BKGD; Pregnancy, Serum, hCG Quali. NEGATIVE Negative
[2022-09-12 22:29] LABS: Anion Gap 13 (5-15); BUN 12 mg/dL (7-18); BUN/Creat Ratio 11.8 RATIO (10-20); Chloride 104 mmol/L (98-107); Creatinine, Serum 1.02 mg/dL (0.55-1.02); EST Glomerular Filtration Rate 73 mL/min (>60); Est Glom Filt Rate - Afr Amer 88 mL/min (>60); Estimated Creatinine Clearance 75.34 ml/min; Glucose 103 mg/dL (74-106); Potassium 3.3 mmol/L (3.5-5.1); Sodium Level 136 mmol/L (136-145)
[2022-09-12 23:00] VITALS: BP 131/97; PULSE 75; RESP 14; O2SAT 97
[2022-09-12 23:24] LABS: Color, Urine Yellow (Yellow); Glucose, Dipstick Normal (Normal); Leukocyte Esterase-Dipstick 500 /ul (Negative); Nitrite-Dipstick Positive (Negative); Occult Blood-Urine 150 /ul (Negative); Protein-Dipstick 100 mg/dl (Negative); Urine Clarity Clear (Clear); Urine Urobilinogen 4 mg/dl (Normal)
[2022-09-12 23:37] LABS: Urine Bilirubin Dipstick 3 mg/dL (Negative)
[2022-09-12 23:38] LABS: Ketone-Dipstick 150 mg/dl (Negative)
[2022-09-12 23:39] LABS: Bacteria 4+ /hpf (None Seen); Mucous, Urine 1+ /hpf (<or=2+); Red Blood Cells-Urine 10-25 SEEN /hpf (0-5); Squamous Epithelial Cells - UA 10-25 SEEN /hpf (5-10); Transitional Epithelial - Ur 0-5 SEEN /hpf (0-5); White Blood Cells >100 SEEN /hpf (0-5)
== END 2022-09-13 00:31 | disposition home or self-care (01) ==
PROVIDERS: Emergency Provider Emergency Medicine; Visit Provider Emergency Medicine
DX: R30.0 Dysuria (principal); M06.9 Rheumatoid arthritis, unspecified; R11.2 Nausea with vomiting, unspecified; M79.7 Fibromyalgia; Z86.16 Personal history of COVID-19; Q61.3 Polycystic kidney, unspecified; F95.2 Tourette's disorder; Z79.899 Other long term (current) drug therapy; F17.210 Nicotine dependence, cigarettes, uncomplicated
CPT/HCPCS: 80048; 81001; 84703; 85025; 96361; 96374; 96375; 99283; J7030; A4216; J2405

== ENCOUNTER → 2022-11-30 | Outpatient (CLI) | payer BC, SELFPAY ==
[2022-11-30 17:47] LABS: Absolute Lymphocyte Count 2.19 X10^3/uL (0.83-4.51); Absolute Neutrophil Count 3.7 X10^3/uL (2.0-7.7); Basophil# 0.04 X10^3/uL; Basophil% 0.6 % (0-1); Eosinophil# 0.34 X10^3/uL; Eosinophils% 4.9 % (0-5); Hematocrit 42.2 % (37-47); Hemoglobin 13.6 g/dL (12.0-15.0); Lymphocyte # 2.19 X10^3/ul (0.83-4.51); Lymphocyte % 31.4 % (19-41); Mean Corp Hgb Conc 32.2 g/dL (32-36); Mean Corpuscular Volume 86.8 fL (81-99); Mean Platelet Vol. 9.8 fl (6.2-12.0); Monocyte# 0.66 X10^3/uL; Monocyte% 9.5 % (0-10); NRBC Flagged by Analyzer 0 % (0-5); Neutrophil # 3.72 X10^3/uL (2.7-7.7); Neutrophil % 53.2 % (47-70); Platelet Count 464 K/mm3 (150-450); RBC Distribution Width SD 41.1 fl (35.1-43.9); Red Blood Count 4.86 M/mm3 (4.2-5.4)
[2022-11-30 18:26] LABS: ALB/GLOB Ratio 0.7 RATIO (0.9-2.4); AST(SGOT) 20 U/L (15-37); Alanine Aminotransfer ALT/SGPT 24 U/L (13-56); Albumin, Serum 2.9 g/dL (3.2-5.0); Alkaline Phosphatase 52 U/L (45-117); Anion Gap 0 (5-15); BUN 10 mg/dL (7-18); BUN/Creat Ratio 14.1 RATIO (10-20); Calcium,Total 8.8 mg/dL (8.5-10.1); Chloride 108 mmol/L (98-107); Creatinine, Serum 0.71 mg/dL (0.55-1.02); EST Glomerular Filtration Rate 110 mL/min (>60); Est Glom Filt Rate - Afr Amer 133 mL/min (>60); Globulin 4.2 g/dL (2.2-4.2); Glucose 78 mg/dL (74-106); Potassium 3.8 mmol/L (3.5-5.1); Protein, Total 7.1 g/dL (6.4-8.2); Sodium Level 133 mmol/L (136-145)
[2022-12-03 05:07] LABS: G6PD Quant Test 291 (155-399); Red Blood Cell Count Test/G6PD 4.66 x10E6/uL (3.77-5.28)
== END | disposition home or self-care (01) ==
LOC: MTLAB 15:01
PROVIDERS: Referring Provider Internal Medicine Rheumatology; Visit Provider Internal Medicine Rheumatology
DX: M06.09 Rheumatoid arthritis without rheumatoid factor, multiple sites (principal); R76.8 Other specified abnormal immunological findings in serum; M79.7 Fibromyalgia; Z79.899 Other long term (current) drug therapy
CPT/HCPCS: 36415; 80053; 82955; 85025

== ENCOUNTER → 2023-01-11 | Outpatient (CLI) | payer BC, SELFPAY ==
[2023-01-11 15:51] LABS: Absolute Neutrophil Count 2.3 X10^3/uL (2.0-7.7); Basophil# 0.05 X10^3/uL; Basophil% 0.9 % (0-1); Eosinophil# 0.24 X10^3/uL; Eosinophils% 4.3 % (0-5); Hematocrit 39.8 % (37-47); Hemoglobin 12.3 g/dL (12.0-15.0); Lymphocyte % 39.6 % (19-41); Mean Corp Hgb Conc 30.9 g/dL (32-36); Mean Corpuscular Hgb 27.8 pg (27.0-32.0); Mean Corpuscular Volume 89.8 fL (81-99); Mean Platelet Vol. 9.4 fl (6.2-12.0); Monocyte# 0.73 X10^3/uL; Monocyte% 13.1 % (0-10); NRBC Flagged by Analyzer 0 % (0-5); Neutrophil # 2.31 X10^3/uL (2.7-7.7); Neutrophil % 41.6 % (47-70); Platelet Count 400 K/mm3 (150-450); RBC Distribution Width CV 13.4 % (11.6-14.6); RBC Distribution Width SD 44.5 fl (35.1-43.9); Red Blood Count 4.43 M/mm3 (4.2-5.4); White Blood Count 5.6 K/mm3 (4.4-11.0)
[2023-01-11 16:25] LABS: ALB/GLOB Ratio 0.9 RATIO (0.9-2.4); AST(SGOT) 18 U/L (15-37); Alanine Aminotransfer ALT/SGPT 23 U/L (13-56); Alkaline Phosphatase 45 U/L (45-117); Anion Gap 3 (5-15); BUN 8 mg/dL (7-18); BUN/Creat Ratio 10.1 RATIO (10-20); Calcium,Total 8.7 mg/dL (8.5-10.1); Chloride 105 mmol/L (98-107); Creatinine, Serum 0.79 mg/dL (0.55-1.02); EST Glomerular Filtration Rate 97 mL/min (>60); Est Glom Filt Rate - Afr Amer 118 mL/min (>60); Globulin 3.5 g/dL (2.2-4.2); Glucose 55 mg/dL (74-106); Potassium 3.8 mmol/L (3.5-5.1); Protein, Total 6.5 g/dL (6.4-8.2); Sodium Level 136 mmol/L (136-145)
== END | disposition home or self-care (01) ==
PROVIDERS: Referring Provider Internal Medicine Rheumatology; Visit Provider Internal Medicine Rheumatology
DX: M06.09 Rheumatoid arthritis without rheumatoid factor, multiple sites (principal); R76.8 Other specified abnormal immunological findings in serum; M79.7 Fibromyalgia; Q61.3 Polycystic kidney, unspecified; Z79.899 Other long term (current) drug therapy
CPT/HCPCS: 36415; 80053; 85025

== ENCOUNTER → 2023-03-30 | Outpatient (CLI) | payer BC, SELFPAY ==
[2023-03-30 15:27] LABS: Absolute Lymphocyte Count 1.84 X10^3/uL (0.83-4.51); Absolute Neutrophil Count 1.9 X10^3/uL (2.0-7.7); Basophil# 0.04 X10^3/uL; Basophil% 0.8 % (0-1); Eosinophil# 0.26 X10^3/uL; Eosinophils% 5.5 % (0-5); Hematocrit 38.9 % (37-47); Hemoglobin 12.6 g/dL (12.0-15.0); Lymphocyte # 1.84 X10^3/ul (0.83-4.51); Lymphocyte % 39.1 % (19-41); Mean Corp Hgb Conc 32.4 g/dL (32-36); Mean Corpuscular Hgb 28.2 pg (27.0-32.0); Mean Platelet Vol. 9.6 fl (6.2-12.0); Monocyte# 0.67 X10^3/uL; Monocyte% 14.2 % (0-10); NRBC Flagged by Analyzer 0 % (0-5); Neutrophil # 1.87 X10^3/uL (2.7-7.7); Neutrophil % 39.8 % (47-70); Platelet Count 472 K/mm3 (150-450); RBC Distribution Width SD 38.6 fl (35.1-43.9); Red Blood Count 4.47 M/mm3 (4.2-5.4); White Blood Count 4.7 K/mm3 (4.4-11.0)
[2023-03-30 15:46] LABS: ALB/GLOB Ratio 0.9 RATIO (0.9-2.4); AST(SGOT) 19 U/L (15-37); Alanine Aminotransfer ALT/SGPT 23 U/L (13-56); Albumin, Serum 3.3 g/dL (3.2-5.0); Alkaline Phosphatase 55 U/L (45-117); Anion Gap 7 (5-15); BUN 8 mg/dL (7-18); BUN/Creat Ratio 10.1 RATIO (10-20); Calcium,Total 8.8 mg/dL (8.5-10.1); Chloride 109 mmol/L (98-107); Creatinine, Serum 0.79 mg/dL (0.55-1.02); EST Glomerular Filtration Rate 97 mL/min (>60); Est Glom Filt Rate - Afr Amer 118 mL/min (>60); Globulin 3.7 g/dL (2.2-4.2); Glucose 93 mg/dL (74-106); Sodium Level 139 mmol/L (136-145)
== END | disposition home or self-care (01) ==
LOC: MTLAB 11:32
PROVIDERS: Referring Provider Internal Medicine Rheumatology; Visit Provider Internal Medicine Rheumatology
DX: M06.09 Rheumatoid arthritis without rheumatoid factor, multiple sites (principal); R76.8 Other specified abnormal immunological findings in serum; Z79.899 Other long term (current) drug therapy
CPT/HCPCS: 36415; 80053; 85025

== ENCOUNTER 2023-07-24 11:08 | Emergency (ER) | payer BC, SELFPAY ==
[2023-07-24 11:08] VITALS: BP 131/88; PULSE 98; RESP 19; TEMP 36.6; O2SAT 97; BMI 24.0
--- NOTE | 2023-07-24 11:25 | EDS_ITS ---
HPI <BIBI Devlin - Last Filed: 07/24/23 13:22> History of Present Illness Chief Complaint: Abd Pain Narrative Narrative: 23-year-old female presents with 6 months of daily crampy periumbilical abdominal pain. It's sometimes relieved with eating or having a bowel movement but then comes back. She has 2-3 soft bowel movements daily and denies melena or hematochezia. She is occasionally nauseous without vomiting. No fever or chills. No urinary symptoms. She had a bladder pacemaker put in about 3 years ago for overactive bladder. She does not have menstrual cycles because she wears her NuvaRing continuously. She vapes marijuana daily. No frequent alcohol use. No abdominal surgical history. She does not have a primary care doctor so decided to seek evaluation at the emergency room. [facility] <BIBI Devlin - Last Filed: 07/24/23 13:22> [facility] Medical History Anemia Anxiety Blackout Bladder disease Depression Easy bruising Excessive bleeding Fibromyalgia History of COVID-19 Injury of head and neck Marijuana use Nocturia Polycystic kidney disease POTS (postural orthostatic tachycardia syndrome) Rheumatoid arthritis Smoker Tourettes syndrome Urge incontinence Urinary tract infection Wears glasses Home Medications ?Medication ?Instructions ?Recorded ?Last Taken ?Type duloxetine 60 mg capsule,delayed 60 mg PO DAILY 10/29/21 Unknown History release etanercept 50 mg/mL (1 mL) 50 mg subcut QWEEK 10/29/21 Unknown History subcutaneous pen injector (Enbrel SureClick) hydrocodone-acetaminophen 5-325mg 1 tab PO Q4H PRN PRN Pain 2 days 10/29/21 Unknown Rx 5mg-325mg #10 TABLETS hydroxychloroquine 1.5 tablet DAILY 10/29/21 Unknown History turmeric 100 mg-glenroy 150 1 cap PO DAILY 10/29/21 Unknown History mg-olive 50 mg-oreg 150 mg-capryl capsule ondansetron 4 mg disintegrating 4 mg PO Q6H PRN nausea and 09/12/22 Unknown Rx tablet vomiting #7 tabs dicyclomine 20 mg tablet 20 mg PO BID 5 days #10 tabs 07/24/23 Unknown Rx Allergy/AdvReac Type Severity Reaction Status Date / Time vancomycin AdvReac Itching Verified 09/12/22 21:01 Family History Mother CVA (cerebral vascular accident) Surgical History Hemangioma Hx of cystoscopy Social History household members: family Smoking Status: Current every day smoker tobacco type: cigarettes and smokeless tobacco alcohol intake: never substance use type: does not use ROS <BIBI Devlin - Last Filed: 07/24/23 13:22> ROS ED ROS Narrative Constitutional: Negative for fever, chills, malaise. CVS: Negative for chest pain. Respiratory: Negative for shortness of breath. GI: Positive for abdominal pain, nausea. Negative for vomiting, diarrhea, constipation, melena, hematochezia. : Negative for dysuria, hematuria. EXAM <BIBI Devlin - Last Filed: 07/24/23 13:22> Physical Exam Narrative Exam Narrative: CONST: Patient sitting in no acute distress. EYES: Normal inspection. NECK: Normal inspection. RESP: No respiratory distress, CTAB. CVS: Regular rate and rhythm, no murmur, no gallop. ABD: Soft with minimal periumbilical tenderness, nontender in the RUQ and RLQ, no guarding or rebound, nondistended, no hepatosplenomegaly. SKIN: Color normal, no rash, warm, dry, intact. EXTREMITIES: Normal appearance, no pedal edema. NEURO: Alert and answering questions appropriately. PSYCH: Flat affect. Const Vital Signs: 07/24/23 11:08 07/24/23 13:08 Temperature 97.9 F Temperature Source Temporal Pulse Rate 98 76 Respiratory Rate 19 H 16 Blood Pressure 131/88 H 120/85 H Blood Pressure Mean 102 96 Pulse Ox 97 98 Oxygen Delivery Method Room Air Room Air <Dr. Tan Bojorquez MD - Last Filed: 07/24/23 11:43> Physical Exam Const Vital Signs: 07/24/23 11:08 07/24/23 13:08 Temperature 97.9 F Temperature Source Temporal Pulse Rate 98 76 Respiratory Rate 19 H 16 Blood Pressure 131/88 H 120/85 H Blood Pressure Mean 102 96 Pulse Ox 97 98 Oxygen Delivery Method Room Air Room Air [facility] <BIBI Devlin - Last Filed: 07/24/23 13:22> [facility] Narrative Medical decision making narrative: History gathered from: Patient and mom Differential: IBS, IBD, liver or kidney etiology, diverticulitis Patient has had 6+ months of daily cramping abdominal pain. She appears well and nontoxic. Vital signs stable. She has a soft, nonsurgical abdomen. CBC and CMP are unremarkable. test negative. UA has 500 leukocyte esterase and WBCs and 1+ bacteria but is contaminated. She has no urinary symptoms and her last several culture showed contamination so do not think antibiotics are indicated. I sent a culture. She has had multiple normal CT abdomen/pelvis scans in the past and with normal labs and serial benign abdominal exams I do not think another CT is indicated. I provided contact information for PCP and GI referrals and prescribed Bentyl and she was discharged in stable condition. I have personally performed a face to face assessment of the patient and have reviewed the FORTINO Note. I performed a substantive portion of the visit including all aspects of the following. My bai findings include: History is 23-year-old female history of a bladder stimulator for overactive bladder. No other prior abdominal surgeries. She has had for 3 years. She is complaining of periumbilical abdominal pain for months. Patient is urinating. Denies dysuria. Denies fever. Denies weight loss. She is moving her bowels. Denies any trauma. She Exam is [well-appearing 23-year-old female. Vital signs stable afebrile. The H EENT exam unremarkable. Lungs clear. Heart regular rhythm. Abdomen soft, nontender, nondistended, normal bowel sounds without peritoneal signs. No hernia no mass. No distention. No signs of trauma. Both right upper or right lower quadrant unremarkable. Umbilicus is unremarkable. Moving all 4 extremities. Awake and alert.] Medical Decision Making [23-year-old female abdominal pain. Exam benign. Does not need imaging. States she has had a CAT scan of her abdomen done in the recent past. Screening labs to be obtained. Patient has had numerous abdominal CTs done here over the last several years. They show renal cysts and renal stones but no acute processes.] Other additions or changes: [None] Lab Data Labs: Laboratory Results - last 24 hr 07/24/23 07/24/23 11:35 12:15 WBC 9.4 RBC 4.65 Hgb 13.0 Hct 40.8 MCV 87.7 MCH 28.0 MCHC 31.9 L RDW Std Deviation 39.3 RDW Coeff of Tiffany 12.1 Plt Count 384 MPV 9.0 Immature Gran % (Auto) 1.600 H Neut % (Auto) 70.5 H Lymph % (Auto) 19.3 [place] % (Auto) 6.3 Eos % (Auto) 1.9 Baso % (Auto) 0.4 Absolute Neuts (auto) 6.7 Absolute Lymphs (auto) 1.82 Nucleated RBC % 0 Sodium 140 Potassium 4.0 Chloride 107 Carbon Dioxide 25.0 Anion Gap 8 BUN 14 Creatinine 0.78 Estim Creat Clear Calc 97.69 Est GFR (MDRD) Af Amer 119 Est GFR (MDRD) Non-Af 99 BUN/Creatinine Ratio 18.0 Glucose 128 H Calcium 9.1 Total Bilirubin 0.20 AST 20 ALT 25 Alkaline Phosphatase 39 L Total Protein 6.4 Albumin 3.1 L Globulin 3.3 Albumin/Globulin Ratio 0.9 Serum , Qual NEGATIVE Urine Color Yellow Urine Clarity Clear Urine pH 7.0 Ur Specific [place] 1.010 Urine Protein Negative Urine Glucose (UA) Normal Urine Ketones Negative Urine Occult Blood Negative Urine Nitrite Negative Urine Bilirubin Negative Urine Urobilinogen Normal Ur Leukocyte Esterase 500 H Urine RBC 0 SEEN Urine WBC 10-25 SEEN Ur Squamous Epith Cells 5-10 SEEN Amorphous Sediment 2+ Urine Bacteria 1+ Urine Mucus 0 SEEN <Dr. Tan Bojorquez MD - Last Filed: 07/24/23 11:43> [facility] MDM Narrative Medical decision making narrative: I have personally performed a face to face assessment of the patient and have reviewed the FORTINO Note. I performed a substantive portion of the visit including all aspects of the following. My bai findings include: History is 23-year-old female history of a bladder stimulator for overactive bladder. No other prior abdominal surgeries. She has had for 3 years. She is complaining of periumbilical abdominal pain for months. Patient is urinating. Denies dysuria. Denies fever. Denies weight loss. She is moving her bowels. Denies any trauma. She Exam is [well-appearing 23-year-old female. Vital signs stable afebrile. The H EENT exam unremarkable. Lungs clear. Heart regular rhythm. Abdomen soft, nontender, nondistended, normal bowel sounds without peritoneal signs. No hernia no mass. No distention. No signs of trauma. Both right upper or right lower quadrant unremarkable. Umbilicus is unremarkable. Moving all 4 extremities. Awake and alert.] Medical Decision Making [23-year-old female abdominal pain. Exam benign. Does not need imaging. States she has had a CAT scan of her abdomen done in the recent past. Screening labs to be obtained. Patient has had numerous abdominal CTs done here over the last several years. They show renal cysts and renal stones but no acute processes.] Other additions or changes: [None] Lab Data Labs: Laboratory Results - last 24 hr 07/24/23 07/24/23 11:35 12:15 WBC 9.4 RBC 4.65 Hgb 13.0 Hct 40.8 MCV 87.7 MCH 28.0 MCHC 31.9 L RDW Std Deviation 39.3 RDW Coeff of Tiffany 12.1 Plt Count 384 MPV 9.0 Immature Gran % (Auto) 1.600 H Neut % (Auto) 70.5 H Lymph % (Auto) 19.3 [place] % (Auto) 6.3 Eos % (Auto) 1.9 Baso % (Auto) 0.4 Absolute Neuts (auto) 6.7 Absolute Lymphs (auto) 1.82 Nucleated RBC % 0 Sodium 140 Potassium 4.0 Chloride 107 Carbon Dioxide 25.0 Anion Gap 8 BUN 14 Creatinine 0.78 Estim Creat Clear Calc 97.69 Est GFR (MDRD) Af Amer 119 Est GFR (MDRD) Non-Af 99 BUN/Creatinine Ratio 18.0 Glucose 128 H Calcium 9.1 Total Bilirubin 0.20 AST 20 ALT 25 Alkaline Phosphatase 39 L Total Protein 6.4 Albumin 3.1 L Globulin 3.3 Albumin/Globulin Ratio 0.9 Serum , Qual NEGATIVE Urine Color Yellow Urine Clarity Clear Urine pH 7.0 Ur Specific [place] 1.010 Urine Protein Negative Urine Glucose (UA) Normal Urine Ketones Negative Urine Occult Blood Negative Urine Nitrite Negative Urine Bilirubin Negative Urine Urobilinogen Normal Ur Leukocyte Esterase 500 H Urine RBC 0 SEEN Urine WBC 10-25 SEEN Ur Squamous Epith Cells 5-10 SEEN Amorphous Sediment 2+ Urine Bacteria 1+ Urine Mucus 0 SEEN Discharge Plan Triage Chief Complaint: Abd Pain ED Midlevel Provider: Padmaja Carrion ED Provider: Tan Bojorquez Dx/Rx/DC Orders Clinical Impression: Abdominal pain Instructions: Abdominal Pain Prescriptions: New dicyclomine 20 mg tablet 20 mg PO BID 5 Days Qty: 10 0RF No Action duloxetine 60 mg capsule,delayed release(DR/EC) 60 mg PO DAILY Enbrel SureClick 50 mg/mL (1 mL) pen injector 50 mg SUBCUT QWEEK nuraapom-qbbx-xflkq-oreg-capry 100 mg-150 mg- 50 mg-150 mg Capsule 1 cap PO DAILY hydroxychloroquine 1.5 tablet DAILY hydrocodone-acetaminophen [hydrocodone-acetaminophen] 5-325 mg tablet 1 tab PO Q4H PRN PRN (Reason: Pain) 2 Days Qty: 10 0RF ondansetron 4 mg tablet,disintegrating 4 mg PO Q6H PRN (Reason: nausea and vomiting) Qty: 7 0RF Primary Care Provider: Care Physician,No Primary Referrals: Talita Villanueva DO [Med Staff - Lpn R[facility] Hospice] - Friend,DO Ifeanyi [Med Staff - Active Staff] - Care Physician,No Primary [Primary Care Provider] - Activity Restrictions/Additional Instructions: Your screening tests look normal. I recommend following up with the primary care doctor and manager data warehouse (GI). Print Language: Frisian Disposition Disposition: Home, Self Care
[2023-07-24 11:47] LABS: Absolute Lymphocyte Count 1.82 X10^3/uL (0.83-4.51); Absolute Neutrophil Count 6.7 X10^3/uL (2.0-7.7); Basophil# 0.04 X10^3/uL; Basophil% 0.4 % (0-1); Eosinophil# 0.18 X10^3/uL; Eosinophils% 1.9 % (0-5); Hematocrit 40.8 % (37-47); Lymphocyte # 1.82 X10^3/ul (0.83-4.51); Lymphocyte % 19.3 % (19-41); Mean Corp Hgb Conc 31.9 g/dL (32-36); Mean Corpuscular Volume 87.7 fL (81-99); Monocyte# 0.59 X10^3/uL; Monocyte% 6.3 % (0-10); NRBC Flagged by Analyzer 0 % (0-5); Neutrophil # 6.66 X10^3/uL (2.7-7.7); Neutrophil % 70.5 % (47-70); Platelet Count 384 K/mm3 (150-450); RBC Distribution Width CV 12.1 % (11.6-14.6); RBC Distribution Width SD 39.3 fl (35.1-43.9); Red Blood Count 4.65 M/mm3 (4.2-5.4); White Blood Count 9.4 K/mm3 (4.4-11.0)
[2023-07-24 11:56] LABS: Internal QC Validated? YES +Cl - CLEAR BKGD; Pregnancy, Serum, hCG Quali. NEGATIVE Negative
[2023-07-24 12:04] LABS: ALB/GLOB Ratio 0.9 RATIO (0.9-2.4); AST(SGOT) 20 U/L (15-37); Alanine Aminotransfer ALT/SGPT 25 U/L (13-56); Albumin, Serum 3.1 g/dL (3.2-5.0); Alkaline Phosphatase 39 U/L (45-117); Anion Gap 8 (5-15); BUN 14 mg/dL (7-18); Calcium,Total 9.1 mg/dL (8.5-10.1); Chloride 107 mmol/L (98-107); Creatinine, Serum 0.78 mg/dL (0.55-1.02); EST Glomerular Filtration Rate 99 mL/min (>60); Est Glom Filt Rate - Afr Amer 119 mL/min (>60); Estimated Creatinine Clearance 97.69 ml/min; Globulin 3.3 g/dL (2.2-4.2); Glucose 128 mg/dL (74-106); Protein, Total 6.4 g/dL (6.4-8.2); Sodium Level 140 mmol/L (136-145)
[2023-07-24] MEDS: Ondansetron 4 MG/2 ML Vial IV (12:27)
[2023-07-24] MEDS: Ketorolac 15 MG/ML Vial IV (12:27)
[2023-07-24 12:31] LABS: Mucous, Urine 0 SEEN /hpf (<or=2+); Red Blood Cells-Urine 0 SEEN /hpf (0-5)
[2023-07-24 12:37] LABS: Color, Urine Yellow (Yellow); Glucose, Dipstick Normal (Normal); Ketone-Dipstick Negative (Negative); Leukocyte Esterase-Dipstick 500 /ul (Negative); Nitrite-Dipstick Negative (Negative); Occult Blood-Urine Negative /ul (Negative); Protein-Dipstick Negative (Negative); Urine Bilirubin Dipstick Negative (Negative); Urine Clarity Clear (Clear); Urine Urobilinogen Normal (Normal)
[2023-07-24 12:58] LABS: Amorphous Sediment 2+; Bacteria 1+ /hpf (None Seen); Squamous Epithelial Cells - UA 5-10 SEEN /hpf (5-10); White Blood Cells 10-25 SEEN /hpf (0-5)
[2023-07-24 13:08] VITALS: BP 120/85; PULSE 76; RESP 16; O2SAT 98
[2023-07-24 13:25] VITALS: BP 120/85; PULSE 76; RESP 16; TEMP 36.3; O2SAT 98
== END 2023-07-24 13:25 | disposition home or self-care (01) ==
PROVIDERS: Physician Assistant; Emergency Provider Emergency Medicine; Visit Provider Emergency Medicine
DX: R10.33 Periumbilical pain (principal); F17.210 Nicotine dependence, cigarettes, uncomplicated; F17.220 Nicotine dependence, chewing tobacco, uncomplicated; Z86.16 Personal history of COVID-19
CPT/HCPCS: 80053; 81001; 84703; 85025; 87086; 87088; 96374; 96375; 99283; A4216; J2405

== ENCOUNTER 2023-08-09 21:43 | Emergency (ER) | payer BC, SELFPAY ==
[2023-08-09 21:43] VITALS: BP 128/98; PULSE 106; RESP 16; TEMP 36.6; O2SAT 98
--- NOTE | 2023-08-09 21:48 | ED.RN ---
While triaging patient, mother walks into room and patient throws pulse ox across the floor. This nurse asked pt if something was wrong, pt huffs and mother replies she hasn't slept in 5 days. This nurse verbalized understanding of frustration of not sleeping, instructed pt that appropriate behavior is still expected and throwing hospital property would not be tolerated. Pt then stood up and stated fuck this we're leaving and ambulated out of department.
== END 2023-08-09 21:47 | disposition left against medical advice (07) ==
LOC: ED 21:50
DX: Z53.21 Procedure and treatment not carried out due to patient leaving prior to being seen by health care provider (principal)

== ENCOUNTER → 2023-11-10 | Outpatient (CLI) | payer BC, SELFPAY ==
[2023-11-10 17:57] LABS: Absolute Lymphocyte Count 2.12 X10^3/uL (0.83-4.51); Basophil# 0.04 X10^3/uL; Basophil% 0.5 % (0-1); Eosinophil# 0.47 X10^3/uL; Eosinophils% 6.4 % (0-5); Hematocrit 42.3 % (37-47); Hemoglobin 13.6 g/dL (12.0-15.0); Lymphocyte # 2.12 X10^3/ul (0.83-4.51); Lymphocyte % 28.8 % (19-41); Mean Corp Hgb Conc 32.2 g/dL (32-36); Mean Corpuscular Hgb 26.9 pg (27.0-32.0); Mean Corpuscular Volume 83.8 fL (81-99); Mean Platelet Vol. 10.8 fl (6.2-12.0); Monocyte# 0.76 X10^3/uL; Monocyte% 10.3 % (0-10); NRBC Flagged by Analyzer 0 % (0-5); Neutrophil # 3.96 X10^3/uL (2.7-7.7); Neutrophil % 53.7 % (47-70); Platelet Count 391 K/mm3 (150-450); RBC Distribution Width CV 13.1 % (11.6-14.6); Red Blood Count 5.05 M/mm3 (4.2-5.4); White Blood Count 7.4 K/mm3 (4.4-11.0)
[2023-11-10 18:08] LABS: CRP 4.26 mg/L (0.0-3.0); Erythrocyte Sedimentation Rate 17 mm/hr (0-30)
== END | disposition home or self-care (01) ==
LOC: MTLAB 16:47
PROVIDERS: PCP Internal Medicine; Referring Provider Internal Medicine; Visit Provider Internal Medicine
DX: L29.9 Pruritus, unspecified (principal)
CPT/HCPCS: 36415; 85025; 85652; 86140

== ENCOUNTER 2023-12-30 15:34 | Emergency (ER) | payer BC, SELFPAY ==
[2023-12-30 15:35] VITALS: BP 136/80; PULSE 86; RESP 16; TEMP 37.1; O2SAT 98; BMI 24.9
[2023-12-30 16:38] LABS: Bacteria 0 SEEN /hpf (None Seen); Mucous, Urine 0 SEEN /hpf (<or=2+)
[2023-12-30 16:41] LABS: Color, Urine Yellow (Yellow); Glucose, Dipstick Normal (Normal); Ketone-Dipstick 5 mg/dl (Negative); Leukocyte Esterase-Dipstick 100 /ul (Negative); Nitrite-Dipstick Negative (Negative); Occult Blood-Urine 250 /ul (Negative); Protein-Dipstick 30 mg/dl (Negative); Urine Bilirubin Dipstick Negative (Negative); Urine Clarity Sl. Cloudy (Clear); Urine Urobilinogen Normal (Normal); Urine pH 6.5 (5.0 - 8.0)
--- NOTE | 2023-12-30 16:58 | EDS_ITS ---
<Statement entered by Terry Tucker DO - 12/30/23 20:35> Patient was seen and examined with physician bilingual legal assistant: All components of the history and physical confirmed and agreed. History of present illness and physical exam: Patient is a 23-year-old female who presents to the emergency department with a chief complaint of cramping which she has had over the last several days. States that she uses the NuvaRing and was supposed that she exchanges on however she states that she forgot and began having spotting over the weekend. She states that she exchange her NuvaRing on Wednesday and notes that she had intermittent spotting today as well as the past few days. States that the spotting was more heavy and had a worsening cramps which ultimately she called her OB/GYNs office and they advised her to come here for further evaluation management. Review of systems: Agree with above Physical exam: Agree with above MDM Patient is a 23-year-old female who presents to the emergency department chief complaint of cramping and spotting. Patient will have a workup performed here on the differential diagnose includes Melamin to , ectopic , breakthrough bleeding, UTI. Once workup is obtained reviewed she will be reevaluated. Patient's urinalysis showed 100 leukocyte esterase negative nitrite 0-5 white cells and no bacteria noted. test was negative. On repeat exam her abdomen is soft nontender. She was encouraged to follow-up with her sales incentive analyst and return with worsening symptoms or any concerns. She is agreeable this plan she would like to go home all question concerns answered she is discharged home in stable condition. Final impression: Breakthrough bleeding Abdominal cramping Disposition: Patient will be discharged home in stable condition Supervising attending attestation: Terry Tucker D.O. HPI HPI - Female History of Present Illness Chief Complaint: Vag Bleeding Narrative Narrative: Patient presenting today due to concerns for pelvic cramping she has had over the last several days. She reports that she uses a NuvaRing continuously, she was supposed to exchange the new her ring on but she forgot to take it out and began having spotting over the weekend, she then exchanged the NuvaRing Wednesday and put a new one in. She reports that she has had intermittent spotting, today she bled a little bit more heavy and had to use a pad but has only had to change it once. She has had intermittent pelvic cramps. She called her sales incentive analyst office and they recommended she come in for evaluation. She sees Cami Montilla CNP for gynecology. She denies fevers, chills, urinary symptoms. [facility] Medical History POTS (postural orthostatic tachycardia syndrome) Fibromyalgia Rheumatoid arthritis Nocturia Polycystic kidney disease Urinary tract infection Urge incontinence History of COVID-19 Wears glasses Depression Anxiety Marijuana use Bladder disease Anemia Easy bruising Excessive bleeding Injury of head and neck Blackout Smoker Tourettes syndrome Home Medications ?Medication ?Instructions ?Recorded ?Last Taken ?Type duloxetine 60 mg capsule,delayed 60 mg PO DAILY 10/29/21 Unknown History release etanercept 50 mg/mL (1 mL) 50 mg subcut QWEEK 10/29/21 Unknown History subcutaneous pen injector (Enbrel SureClick) hydrocodone-acetaminophen 5-325mg 1 tab PO Q4H PRN PRN Pain 2 days 10/29/21 Unknown Rx 5mg-325mg #10 TABLETS hydroxychloroquine 1.5 tablet DAILY 10/29/21 Unknown History turmeric 100 mg-glenroy 150 1 cap PO DAILY 10/29/21 Unknown History mg-olive 50 mg-oreg 150 mg-capryl capsule ondansetron 4 mg disintegrating 4 mg PO Q6H PRN nausea and 09/12/22 Unknown Rx tablet vomiting #7 tabs dicyclomine 20 mg tablet 20 mg PO BID 5 days #10 tabs 07/24/23 Unknown Rx Allergy/AdvReac Type Severity Reaction Status Date / Time vancomycin AdvReac Itching Verified 12/30/23 15:34 Family History Mother CVA (cerebral vascular accident) Surgical History Hx of cystoscopy Hemangioma Social History household members: family Smoking Status: Current every day smoker tobacco type: cigarettes and smokeless tobacco alcohol intake: never substance use type: does not use ROS ROS ED Constitutional Constitutional ED: Denies chills or fever(s) Cardiovascular Cardiovascular: Denies chest pain Respiratory/Chest Respiratory/Chest: Denies dyspnea Gastrointestinal Gastrointestinal: Reports other Details: Pelvic cramping ; Denies abdominal pain, nausea or vomiting Genitourinary Genitourinary ED: Denies dysuria or urinary urgency Musculoskeletal Musculoskeletal: Denies arthralgias or myalgias Integumentary Denies rash Neurologic Neurologic: Denies weakness EXAM Physical Exam Const Vital Signs: 12/30/23 15:35 12/30/23 17:34 Temperature 98.7 F Temperature Source Temporal Pulse Rate 86 88 Respiratory Rate 16 14 Blood Pressure 136/80 H 148/90 H Blood Pressure Mean 98 109 Pulse Ox 98 99 Oxygen Delivery Method Room Air Room Air Positive well nourished, well developed and no apparent distress General Appearance ED: well developed HEENT Reports normocephalic and head/scalp atraumatic Mouth ED: Yes moist mucous membranes normal Eyes PERRL and EOMs intact bilaterally Neck full ROM and supple Chest Wall inspection of chest normal Resp normal respiratory effort and clear to auscultation bilaterally Cardio regular rate and regular rhythm GI soft to palpation, non-tender, non-distended and no masses Back/Spine normal ROM and normal to inspection Extremity normal to inspection and full ROM Neuro oriented x3, CN's II-XII intact bilaterally, moves all extremities, no focal motor deficits and no sensory deficits noted Sensorium / Orientation: awake and alert Psych mental status grossly normal and thought process normal Skin no rashes or lesions noted and no wounds MDM MDM MDM Narrative Medical decision making narrative: Patient presenting today due to pelvic cramping she has had over the last several days, she forgot to exchange her NuvaRing on and left did not until Wednesday when she began having some spotting, she did exchange the ring but has had intermittent spotting and cramping since Wednesday. She is nontoxic- appearing. Vitals are unremarkable, her abdomen is soft nontender. UA obtained, this shows 50-100 RBCs, occult blood no bacteria or nitrites. test is negative. She was given Toradol here for her pain and did report improvement of her symptoms on reexamination. I did recommend that she follow-up with her g ynecologist. She will be discharged home in stable condition. Lab Data Attestation: I reviewed the patient's lab results. Labs: Laboratory Results - last 24 hr 12/30/23 16:30 Urine Color Yellow Urine Clarity Sl. Cloudy Urine pH 6.5 Ur Specific [place] 1.010 Urine Protein 30 H Urine Glucose (UA) Normal Urine Ketones 5 H Urine Occult Blood 250 H Urine Nitrite Negative Urine Bilirubin Negative Urine Urobilinogen Normal Ur Leukocyte Esterase 100 H Urine RBC 50-100 SEEN Urine WBC 0-5 SEEN Ur Squamous Epith Cells 0-5 SEEN Urine Bacteria 0 SEEN Urine Mucus 0 SEEN Urine Test Negative Discharge Plan Triage Chief Complaint: Vag Bleeding ED Midlevel Provider: Christina Meza ED Provider: Terry Tucker Dx/Rx/DC Orders Clinical Impression: Pelvic cramping, Breakthrough bleeding Instructions: ED Dysfunctional Uterine Bleeding, ED MENSTRUAL CRAMPING Prescriptions: No Action duloxetine 60 mg capsule,delayed release(DR/EC) 60 mg PO DAILY Enbrel SureClick 50 mg/mL (1 mL) pen injector 50 mg SUBCUT QWEEK lignsumw-kiqd-nrips-oreg-capry 100 mg-150 mg- 50 mg-150 mg Capsule 1 cap PO DAILY hydroxychloroquine 1.5 tablet DAILY hydrocodone-acetaminophen [hydrocodone-acetaminophen] 5-325 mg tablet 1 tab PO Q4H PRN PRN (Reason: Pain) 2 Days Qty: 10 0RF ondansetron 4 mg tablet,disintegrating 4 mg PO Q6H PRN (Reason: nausea and vomiting) Qty: 7 0RF dicyclomine 20 mg tablet 20 mg PO BID 5 Days Qty: 10 0RF Primary Care Provider: Talita Villanueva Referrals: Talita Villanueva DO [Primary Care Provider] - Activity Restrictions/Additional Instructions: Follow-up with your sales incentive analyst. Return for any worsening of symptoms. Print Language: [place] Citizen Disposition Disposition: Home, Self Care Discharge Date/Time: 12/30/23 18:45
[2023-12-30] MEDS: Ketorolac 15 MG/ML Vial IM (17:16)
[2023-12-30 17:25] LABS: White Blood Cells 0-5 SEEN /hpf (0-5)
[2023-12-30 17:26] LABS: Internal QC Validated? YES +Cl - CLEAR BKGD; Pregnancy, Urine Negative Negative; Red Blood Cells-Urine 50-100 SEEN /hpf (0-5); Squamous Epithelial Cells - UA 0-5 SEEN /hpf (5-10)
[2023-12-30 17:34] VITALS: BP 148/90; PULSE 88; RESP 14; O2SAT 99
== END 2023-12-30 18:45 | disposition home or self-care (01) ==
PROVIDERS: Physician Assistant; Emergency Provider Emergency Medicine; PCP Internal Medicine; Referring Provider Emergency Medicine; Visit Provider Emergency Medicine
DX: N93.9 Abnormal uterine and vaginal bleeding, unspecified (principal); M06.9 Rheumatoid arthritis, unspecified; R10.2 Pelvic and perineal pain; F17.210 Nicotine dependence, cigarettes, uncomplicated; F17.290 Nicotine dependence, other tobacco product, uncomplicated; F32.A Depression, unspecified; F41.9 Anxiety disorder, unspecified; E28.2 Polycystic ovarian syndrome; M79.7 Fibromyalgia; Z88.1 Allergy status to other antibiotic agents; Z87.440 Personal history of urinary (tract) infections; Z79.899 Other long term (current) drug therapy
CPT/HCPCS: 81001; 81025; 96372; 99282

== ENCOUNTER 2024-02-11 13:36 | Emergency (ER) | payer BC, SELFPAY ==
[2024-02-11 13:41] VITALS: BP 143/99; PULSE 90; RESP 18; TEMP 36.6; O2SAT 95; BMI 25.2
[2024-02-11 14:16] LABS: Absolute Lymphocyte Count 2.48 X10^3/uL (0.83-4.51); Absolute Neutrophil Count 5.8 X10^3/uL (2.0-7.7); Basophil# 0.07 X10^3/uL; Basophil% 0.8 % (0-1); Eosinophil# 0.22 X10^3/uL; Eosinophils% 2.4 % (0-5); Hematocrit 41.5 % (37-47); Hemoglobin 13.8 g/dL (12.0-15.0); Lymphocyte # 2.48 X10^3/ul (0.83-4.51); Lymphocyte % 26.6 % (19-41); Mean Corp Hgb Conc 33.3 g/dL (32-36); Mean Corpuscular Hgb 26.8 pg (27.0-32.0); Mean Corpuscular Volume 80.6 fL (81-99); Mean Platelet Vol. 9.7 fl (6.2-12.0); Monocyte# 0.73 X10^3/uL; Monocyte% 7.8 % (0-10); NRBC Flagged by Analyzer 0 % (0-5); Neutrophil # 5.77 X10^3/uL (2.7-7.7); Platelet Count 478 K/mm3 (150-450); RBC Distribution Width SD 40.9 fl (35.1-43.9); Red Blood Count 5.15 M/mm3 (4.2-5.4); White Blood Count 9.3 K/mm3 (4.4-11.0)
[2024-02-11 14:44] LABS: Anion Gap 8 (5-15); BUN 8 mg/dL (7-18); BUN/Creat Ratio 10.9 RATIO (10-20); Calcium,Total 9.2 mg/dL (8.5-10.1); Chloride 111 mmol/L (98-107); Creatinine, Serum 0.74 mg/dL (0.55-1.02); EST Glomerular Filtration Rate 105 mL/min (>60); Est Glom Filt Rate - Afr Amer 127 mL/min (>60); Estimated Creatinine Clearance 111.89 ml/min; Glucose 98 mg/dL (74-106); Potassium 3.8 mmol/L (3.5-5.1); Sodium Level 137 mmol/L (136-145)
[2024-02-11 14:58] LABS: Internal QC Validated? YES +Cl - CLEAR BKGD; Pregnancy, Serum, hCG Quali. NEGATIVE Negative
== END 2024-02-11 15:11 | disposition left against medical advice (07) ==
LOC: ED 15:18
PROVIDERS: PCP Internal Medicine
DX: Z53.21 Procedure and treatment not carried out due to patient leaving prior to being seen by health care provider (principal)
CPT/HCPCS: 80048; 84703; 85025

== ENCOUNTER → 2024-11-06 | Outpatient (CLI) | payer BC, SELFPAY ==
--- NOTE | 2024-11-06 13:03 | RAD_ITS ---
PROCEDURE: ABDOMEN SINGLE VIEW 11/06/2024 REASON FOR EXAM: KUB- STONES TECHNIQUE: Procedure Code: RADABD Modality: DX Procedure: Two-view supine abdomen. COMPARISON: CT examination of 02/14/2022. RAD/Abdomen Single View IMPRESSION: Right pelvic/sacral neurostimulator seen. The bowel-gas pattern is unremarkable. No mass or mass effect is seen. Multiple small right lateral renal calculi are seen, in similar location to the right renal calculus seen on the comparison CT examination. Reading Location: [id number]
== END | disposition home or self-care (01) ==
PROVIDERS: PCP Internal Medicine; Referring Provider Urology; Visit Provider Urology
DX: N20.0 Calculus of kidney (principal)
CPT/HCPCS: 74018